=== PATIENT | female | born 1995 | race Two or more races ===

== ENCOUNTER 2016-12-21 16:47 | Inpatient (IN) | payer MEDICAID ==
[2016-12-21] MEDS ORDERED: Acetaminophen/oxyCODONE 325-5 MG Tab PO ONE (18:46)
[2016-12-21] MEDS ORDERED: Sodium Chloride 0.9% 2.5 ML Syringe FLUSH PRN (20:42)
[2016-12-21] MEDS ORDERED: Sodium Chloride 0.9% 10 ML Syringe FLUSH PRN (20:42)
[2016-12-21] MEDS ORDERED: ceFAZolin 1 GM in Premix Bag 1 BAG IV ONE (20:42)
[2016-12-21] MEDS ORDERED: Lactated Ringers 1,000 ML IV SCH ×2 (20:45→23:00)
[2016-12-21] MEDS ORDERED: Citric Acid/Sodium Citrate Solution 30 ML Cup PO SCH (20:45)
--- NOTE | 2016-12-21 20:59 | PCM.PREANE ---
[id number] Reaction - Review of Systems General: No Symptoms Pulmonary: No Symptoms Cardiovascular: No Symptoms Gastrointestinal: No symptoms Neurological: No Symptoms Other: Reports: None - Physical Assessment Pulse: 95 O2 Sat by Pulse Oximetry: 99 Respiratory Rate: 20 Blood Pressure: 142/83 Height: 5 ft 2.99 in Weight: 77.564 kg ASA Class: 2E Mental Status: Alert & Oriented x3 Airway Class: Mallampati = 2 Dentition: Reports: Normal Dentition Thyro-Mental Finger Breadths: 3 Mouth Opening Finger Breadths: 3 ROM/Head Extension: Full Lungs: Clear to auscultation, Normal respiratory effort Cardiovascular: Regular Rate, Regular Rhythm - Lab Values: Laboratory Last Values Urine Color YELLOW 12/21/16 17:45 Urine Appearance CLEAR 12/21/16 17:45 Urine pH 6.0 (5.0-8.0) 12/21/16 17:45 Ur Specific [place] <= 1.005 (1.001-1.035) 12/21/16 17:45 Urine Protein NEGATIVE mg/dL (NEGATIVE) 12/21/16 17:45 Urine Glucose (UA) NEGATIVE mg/dL (NEGATIVE) 12/21/16 17:45 Urine Ketones NEGATIVE mg/dL (NEGATIVE) 12/21/16 17:45 Urine Occult Blood NEGATIVE (NEGATIVE) 12/21/16 17:45 Urine Nitrite NEGATIVE (NEGATIVE) 12/21/16 17:45 Urine Bilirubin NEGATIVE (NEGATIVE) 12/21/16 17:45 Urine Urobilinogen 0.2 EU/dL (<2.0) 12/21/16 17:45 Ur Leukocyte Esterase NEGATIVE (NEGATIVE) 12/21/16 17:45 - Allergies Allergies/Adverse Reactions: Allergies Allergy/AdvReac Type Severity Reaction Status Date / Time No Known Allergies Allergy Verified 07/01/16 18:36 - Anesthesia Plan Free Text/Narrative:: Pt states that she gets extremely anxious after having her spinals placed. "It' s the not having any control feeling". Pt was re-assured. - Acknowledgements Anesthesia Type Planned: General Anesthesia, Spinal Pt an Appropriate Candidate for the Planned Anesthesia: Yes Alternatives and Risks of Anesthesia Discussed w Pt/Guardian: Yes Pt/Guardian Understands and Agrees with Anesthesia Plan: Yes PreAnesthesia Questionnaire HEENT History: Reports: None Cardiovascular History: Reports: None Respiratory History: Reports: None Gastrointestinal History: Reports: GERD Genitourinary History: Reports: None MULTIFOCAL BUTTON GRINDER History: Reports: : 4 Para: 3 LMP (Approximate): Musculoskeletal History: Reports: None Neurological History: Reports: None Psychiatric History: Reports: None Endocrine/Metabolic History: Reports: Obesity/BMI 30+ Hematologic History: Reports: None Immunologic History: Reports: None Oncologic (Cancer) History: Reports: None Dermatologic History: Reports: None - Infectious Disease History Infectious Disease History: Reports: Human papilloma virus (HPV) (2015) - Past Surgical History Head Surgeries/Procedures: Reports: None HEENT Surgical History: Reports: Tonsillectomy Cardiovascular Surgical History: Reports: None GI Surgical History: Reports: None Female Surgical History: Reports: section (X3) Neurological Surgical History: Reports: None Musculoskeletal Surgical History: Reports: None - SUBSTANCE USE Smoking Status *Q: Current Every Day Smoker Tobacco Use Within Last Twelve Months: Cigarettes Recreational Drug Use History: No - HOME MEDS Home Medications: Home Meds Vits #93/Iron Fum/FA [ Formula Tablet] 1 each PO DAILY [History] - CURRENT (IN HOUSE) MEDS Current Meds: Current Medications Citric Acid/Sodium Citrate (Bicitra Solution) 30 ml PO .ONCE MARY Cefazolin Sodium/Dextrose 1 gm (/ Premix) 50 mls @ 100 mls/hr IV ONETIME ONE Stop: 12/21/16 21:11 Lactated Ringer's (Ringers, Lactated) 1,000 mls @ 500 mls/hr IV .BOLUS MARY Sodium Chloride (Saline Flush) 10 ml FLUSH ASDIRECTED PRN PRN Reason: Keep Vein Open Sodium Chloride (Saline Flush) 2.5 ml FLUSH ASDIRECTED PRN PRN Reason: Keep Vein Open Discontinued Medications Oxycodone/Acetaminophen (Percocet 325-5 Mg) 1 tab PO ONETIME ONE Stop: 12/21/16 18:47 Last Admin: 12/21/16 19:01 Dose: 1 tab
[2016-12-21] MEDS ORDERED: Sodium Chloride 0.9% 20 ML ONE (21:20)
[2016-12-21] MEDS ORDERED: Midazolam 1 MG/ML 2 ML SDV ONE (21:20)
[2016-12-21] MEDS ORDERED: fentaNYL 100 MCG/2 ML SDV ONE ×2 (21:20→22:17)
[2016-12-21] MEDS ORDERED: Oxytocin 10 Units/1 ML SDV ONE (21:20)
[2016-12-21] MEDS ORDERED: ceFAZolin 1 GM Vial ONE (21:20)
[2016-12-21] MEDS ORDERED: ePHEDrine 50 MG/ML SDV ONE (21:20)
[2016-12-21] MEDS ORDERED: Morphine PF 10 MG/10 ML SDV ONE (21:21)
[2016-12-21] MEDS ORDERED: Propofol 200 MG/20 ML SDV ONE ×2 (22:08→22:22)
[2016-12-21] MEDS ORDERED: Succinylcholine/Normal Saline 200 MG/10 ML Syringe ONE (22:09)
[2016-12-21] MEDS ORDERED: Rocuronium 10 MG/ML 10 ML Syringe ONE (22:09)
[2016-12-21] MEDS ORDERED: Octyl 2-Cyanoacrylate 1 Tube ONE (22:14)
[2016-12-21] MEDS ORDERED: Lidocaine 1% 50 ML MDV ONE (22:14)
[2016-12-21] MEDS ORDERED: fentaNYL 250 MCG/5 ML SDV ONE (22:19)
--- NOTE | 2016-12-21 22:54 | PCM.OPNOTE ---
- General Post-Op/Procedure Note Date of Surgery/Procedure: 12/21/16 Operative Procedure(s): repeat low transverse Findings: normal pelvis, liveborn male 9 weight 3210 grams Pre Op Diagnosis: 39 weeks, labor, prior Post-Op Diagnosis: Same Anesthesia Technique: Spinal (with MAC) Primary Surgeon: Sarah Robles Anesthesia Provider: Ashley Simons Machine Maintenance: Stanislav Mcintyre Pathology: none Fluid Replacement, Intraop: 1,200 Output, Urine Amount: 300 EBL in mLs: 500 Complications: None Known Condition: Good
[2016-12-21] MEDS ORDERED: HYDROmorphone 2 MG/ML Syringe ONE (22:55)
[2016-12-21] MEDS ORDERED: Lanolin 100% Cream 7 GM Tube TOP PRN (22:56)
[2016-12-21] MEDS ORDERED: Ondansetron 4 MG/2 ML SDV IVPUSH PRN (22:56)
[2016-12-21] MEDS ORDERED: Bisacodyl 10 MG Supp RECTAL PRN (22:56)
[2016-12-21] MEDS ORDERED: Methylergonovine 0.2 MG/1 ML Amp IM PRN (22:56)
[2016-12-21] MEDS ORDERED: diphenhydrAMINE 50 MG/ML SDV IVPUSH PRN (23:09)
[2016-12-21] MEDS ORDERED: Nalbuphine 10 MG/1 ML Vial IVPUSH PRN (23:09)
[2016-12-21] MEDS ORDERED: Naloxone 0.4 MG/ML Syringe IVPUSH PRN (23:09)
[2016-12-21] MEDS: Ketorolac 30 MG/ML SDV IVPUSH SCH (23:17)
[2016-12-22] MEDS: diphenhydrAMINE 50 MG/ML SDV IVPUSH PRN ×2 (00:37→06:28)
--- NOTE | 2016-12-22 02:23 | OR ---
SURGEON: Sarah Robles M.D. DATE OF PROCEDURE: 12/21/2016 PREOPERATIVE DIAGNOSES: A 39-week intrauterine , painful regular contractions, prior delivery x3, desires repeat . POSTOPERATIVE DIAGNOSES: A 39-week intrauterine , painful regular contractions, prior delivery x3, desires repeat . PROCEDURE: Repeat low transverse delivery. ANESTHESIA: Spinal with MAC. FLUIDS: 1200 mL crystalloid. ESTIMATED BLOOD LOSS: 500 mL. URINE OUTPUT: 300 mL. FINDINGS: Live born male, score 9 and 9, weighing 3210 g. Placenta appears normal. Normal-appearing uterus, tubes, and ovaries. COMPLICATIONS: None known. DISPOSITION: Stable to recovery. BRIEF HISTORY: This is a 21-year-old female. She is G4, P3, who presents at 39 weeks' gestation with contractions every 3 to 5 minutes uncomfortable. She rates 8 to 9/10. She received IV fluid hydration. The contractions became more regular and painful, and therefore decision was made to proceed with a repeat as she was 39 weeks of gestation and the contractions were not resolving. Risks had been discussed including bleeding, infection, injury to bowel, bladder, blood vessels, or other organs, risk of thromboembolic event, risk of anesthesia. Understanding all these risks, she does desire to proceed. DESCRIPTION OF PROCEDURE: With the patient in the left tilt position, under spinal analgesia, the abdomen was prepped with chlorhexidine and draped in usual fashion for abdominal surgery. SCDs were in place. She had received a g of Ancef IV and appropriate time-out was held. The area of the cicatrix was grasped with a Maria L clamp. The patient reportedly felt pain on both the right and the left. After waiting for several more minutes, I tested again and the pain was present but less intense. Therefore we waited again and Anesthesia indicated for me to proceed with the surgery. Therefore, a scalp was used to excise the prior cicatrix, which resulted in a transverse curvilinear incision approximately 2 cm cephalad from the pubic symphysis through the skin and fascial incisions. The patient was unaware that I was proceeding. I proceeded through the subcutaneous tissue to the fascia, which was scored transversely in the midline. The fascial incision was extended using curved Patiño scissors. The fascia was elevated from the underlying rectus muscle using sharp and blunt dissection. The rectus muscles were sharply in the midline using Patiño scissors. A finger was used to enter the peritoneal cavity. There were no adhesions to the anterior abdominal wall. Therefore, this incision was extended cephalad and caudad using sharp and blunt dissection. The Tommie O retractor was placed. The visceroperitoneum over the lower uterine segment was incised to develop an adequate bladder flap. A transverse curvilinear incision was made over the lower uterine segment and this incision was extended using blunt dissection resulting in transverse curvilinear incision over the lower uterine segment. Amniotic fluid was clear and with fundal pressure the head and the 's body were delivered via the uterine incision without any difficulty. The was bulb suctioned by nose and mouth. Cord was clamped x2 and cut and the infant was handed to Dr. Cisneros, who was in attendance at delivery. The is a liveborn male, score 9 and 9, weighing 3210 g. Cord blood was collected for cord ABGs as well as routine cord blood sampling. At this point, the patient received additional IV sedation as she was feeling reported discomfort in the peritoneal area. Once her pain control had been adequately addressed, I did proceed with cleaning the uterus and opening of the cervix with a ring forceps and close the uterine incision with a running lock suture of 0 Polysorb followed by an imbricating layer of 0 Polysorb. The posterior cul-de- sac pericolic gutters were cleaned and irrigated. Tubes and ovaries were inspected and appeared normal. The uterine incision was inspected and was hemostatic and the Tommie O retractor was removed. The uterine incision was again inspected and was hemostatic. Therefore, the peritoneum and rectus muscles were loosely approximated in midline using a running mattress suture of 0 Polysorb. The posterior aspect of the fascia was carefully inspected and there were no areas of bleeding. The fascial incision was closed with a running suture of 0 PDS and subcutaneous tissue was irrigated and areas of bleeding that were noted were cauterized. The deep subcutaneous tissue was reapproximated with three [id number] sutures of 0 Polysorb and the skin was closed with a running subcuticular suture of 3-0 Polysorb followed by skin glue. Final sponge, needle, and instrument counts were reported as correct. There were no known complications. The infant is in nursery in good condition. Mother remains in recovery in good condition. KEARA / HOLLAND /[id number]
[2016-12-22] MEDS: Ketorolac 30 MG/ML SDV IVPUSH SCH ×4 (04:37→23:15)
[2016-12-22] MEDS ORDERED: fentaNYL 100 MCG/2 ML SDV IVPUSH PRN (07:10)
--- NOTE | 2016-12-22 07:11 | PCM.POSTAN ---
POST ANESTHESIA ASSESSMENT - MENTAL STATUS Mental Status: alert, oriented - RESPIRATORY Respiratory Status: respiratory rate WNL, airway patent, O2 saturation stable - CARDIOVASCULAR CV Status: pulse rate WNL, blood pressure stable - GASTROINTESTINAL GI Status: no symptoms - PAIN Pain Score: 2 - POST OP HYDRATION Hydration Status: adequate & stable
--- NOTE | 2016-12-22 07:13 | PCM48HPAN ---
Post Anesthesia Note - EVALUATION WITHIN 48HRS OF ANESTHETIC Vital Signs in Normal Range: Yes Patient Participated in Evaluation: Yes Respiratory Function Stable: Yes Airway Patent: Yes Cardiovascular Function Stable: Yes Hydration Status Stable: Yes Pain Control Satisfactory: Yes Nausea and Vomiting Control Satisfactory: Yes Mental Status Recovered: Yes - COMMENTS/OBSERVATIONS Free Text/Narrative:: Pt did well overnight. Denied needing any PO or IV pain medications through the night. This AM states she is "doing good".
--- NOTE | 2016-12-22 08:29 | PCM.PNPP ---
- General Info Date of Service: 12/22/16 Functional Status: Reports: pain controlled, tolerating diet, ambulating, urinating - Review of Systems General: Denies: Fever, Weakness, Fatigue Pulmonary: Denies: shortness of breath, pleuritic chest pain, cough Cardiovascular: Denies: Chest Pain, Palpitations, Dyspnea on Exertion Gastrointestinal: Denies: Abdominal pain Genitourinary: Reports: no symptoms Psychiatric: Reports: no symptoms - General Info Date of Service: 12/22/16 - Patient Data Vital Signs - most recent: Last Vital Signs Temp 36.9 C 12/22/16 08:23 Pulse 87 12/22/16 08:23 Resp 17 12/22/16 08:23 BP 112/57 L 12/22/16 08:23 Pulse Ox 96 12/22/16 08:23 Weight - most recent: 77.564 kg I&O - last 24 hours: Intake & Output 12/21/16 12/22/16 12/22/16 22:59 06:59 14:59 Intake Total 1200 2200 Output Total 600 1020 Balance 600 1180 Lab Results - last 24 hrs: Laboratory Results - last 24 hr 12/21/16 12/21/16 12/21/16 Range/Units 17:45 21:00 21:00 WBC 11.27 H (4.0-11.0) K/uL RBC 3.79 L (4.30-5.90) M/uL Hgb 11.2 L (12.0-16.0) g/dL Hct 34.0 L (36.0-46.0) % MCV 89.7 (80.0-98.0) fL MCH 29.6 (27.0-32.0) pg MCHC 32.9 (31.0-37.0) g/dL RDW Std Deviation 45.1 (28.0-62.0) fl RDW Coeff of Jose De Jesus 14 (11.0-15.0) % Plt Count 295 (150-400) K/uL MPV 9.80 (7.40-12.00) fL Nucleated RBC % 0.0 /100WBC Nucleated RBCs # 0 K/uL Urine Color YELLOW Urine Appearance CLEAR Urine pH 6.0 (5.0-8.0) Ur Specific [place] <= 1.005 (1.001-1.035) Urine Protein NEGATIVE (NEGATIVE) mg/dL Urine Glucose (UA) NEGATIVE (NEGATIVE) mg/dL Urine Ketones NEGATIVE (NEGATIVE) mg/dL Urine Occult Blood NEGATIVE (NEGATIVE) Urine Nitrite NEGATIVE (NEGATIVE) Urine Bilirubin NEGATIVE (NEGATIVE) Urine Urobilinogen 0.2 (<2.0) EU/dL Ur Leukocyte Esterase NEGATIVE (NEGATIVE) Blood Type O POSITIVE Antibody Screen NEGATIVE 12/22/16 Range/Units 04:35 WBC (4.0-11.0) K/uL RBC (4.30-5.90) M/uL Hgb 9.8 L (12.0-16.0) g/dL Hct 29.2 L (36.0-46.0) % MCV (80.0-98.0) fL MCH (27.0-32.0) pg MCHC (31.0-37.0) g/dL RDW Std Deviation (28.0-62.0) fl RDW Coeff of Jose De Jesus (11.0-15.0) % Plt Count (150-400) K/uL MPV (7.40-12.00) fL Nucleated RBC % /100WBC Nucleated RBCs # K/uL Urine Color Urine Appearance Urine pH (5.0-8.0) Ur Specific [place] (1.001-1.035) Urine Protein (NEGATIVE) mg/dL Urine Glucose (UA) (NEGATIVE) mg/dL Urine Ketones (NEGATIVE) mg/dL Urine Occult Blood (NEGATIVE) Urine Nitrite (NEGATIVE) Urine Bilirubin (NEGATIVE) Urine Urobilinogen (<2.0) EU/dL Ur Leukocyte Esterase (NEGATIVE) Blood Type Antibody Screen Med Orders - Current: Current Medications Bisacodyl (Dulcolax) 10 mg RECTAL .ONCE PRN PRN Reason: Constipation Diphenhydramine HCl (Benadryl) 25 mg IVPUSH Q6H PRN PRN Reason: Itching or Nausea Last Admin: 12/22/16 06:28 Dose: 25 mg Diphenhydramine HCl (Benadryl) 25 mg IVPUSH Q4H PRN PRN Reason: Itching Stop: 12/22/16 23:09 Docusate Sodium (Colace) 100 mg PO BID MARY Emollient Ointment (Lansinoh Hpa) 0 gm TOP ASDIRECTED PRN PRN Reason: Sore Nipples Fentanyl (Sublimaze) 50 mcg IVPUSH Q45M PRN PRN Reason: Pain (severe 7-10) Stop: 12/22/16 23:59 Lactated Ringer's (Ringers, Lactated) 1,000 mls @ 125 mls/hr IV ASDIRECTED [facility] Last Admin: 12/22/16 06:28 Dose: 125 mls/hr Ibuprofen (Motrin) 800 mg PO Q8H PRN PRN Reason: mild pain or fever Ketorolac Tromethamine (Toradol) 30 mg IVPUSH Q6H [facility] Stop: 12/22/16 23:01 Last Admin: 12/22/16 04:37 Dose: 30 mg Methylergonovine Maleate (Methergine) 0.2 mg IM .ONCE PRN PRN Reason: Excessive Vaginal Bleeding Nalbuphine HCl (Nubain) 5 mg IVPUSH Q3H PRN PRN Reason: Pruritis Stop: 12/22/16 23:09 Naloxone HCl (Narcan) 0.1 mg IVPUSH ONETIME PRN PRN Reason: Resp. Depression Stop: 12/22/16 23:09 Ondansetron HCl (Zofran) 4 mg IVPUSH Q4H PRN PRN Reason: Nausea/Vomiting Oxycodone/Acetaminophen (Percocet 325-5 Mg) 1 tab PO Q4H PRN PRN Reason: Pain (moderate 4-6) Discontinued Medications Cefazolin Sodium (Ancef) Confirm Administered Dose 1 gm .ROUTE .STK-MED ONE Stop: 12/21/16 21:21 Citric Acid/Sodium Citrate (Bicitra Solution) 30 ml PO .ONCE [facility] Last Admin: 12/21/16 21:48 Dose: 30 ml Ephedrine Sulfate (Ephedrine Sulfate) Confirm Administered Dose 50 mg .ROUTE .STK-MED ONE Stop: 12/21/16 21:21 Fentanyl (Sublimaze) Confirm Administered Dose 100 mcg .ROUTE .STK-MED ONE Stop: 12/21/16 21:21 Fentanyl (Sublimaze) Confirm Administered Dose 100 mcg .ROUTE .STK-MED ONE Stop: 12/21/16 22:18 Fentanyl (Sublimaze) Confirm Administered Dose 250 mcg .ROUTE .STK-MED ONE Stop: 12/21/16 22:20 Hydromorphone HCl (Dilaudid) Confirm Administered Dose 2 mg .ROUTE .STK-MED ONE Stop: 12/21/16 22:56 Cefazolin Sodium/Dextrose 1 gm (/ Premix) 50 mls @ 100 mls/hr IV ONETIME ONE Stop: 12/21/16 21:11 Lactated Ringer's (Ringers, Lactated) 1,000 mls @ 500 mls/hr IV .BOLUS MARY Last Admin: 12/21/16 21:00 Dose: 500 mls/hr Sodium Chloride (Normal Saline) Confirm Administered Dose 20 mls @ as directed .ROUTE .STK-MED ONE Stop: 12/21/16 21:21 Lidocaine HCl (Xylocaine 1%) Confirm Administered Dose 50 ml .ROUTE .STK-MED ONE Stop: 12/21/16 22:15 Midazolam HCl (Versed 1 Mg/Ml) Confirm Administered Dose 2 mg .ROUTE .STK-MED ONE Stop: 12/21/16 21:21 Morphine Sulfate (Duramorph Pf) Confirm Administered Dose 10 mg .ROUTE .STK-MED ONE Stop: 12/21/16 21:22 Octyl Cyanoacrylate (Dermabond Advance) Confirm Administered Dose 1 applic .ROUTE .STK-MED ONE Stop: 12/21/16 22:15 Oxycodone/Acetaminophen (Percocet 325-5 Mg) 1 tab PO ONETIME ONE Stop: 12/21/16 18:47 Last Admin: 12/21/16 19:01 Dose: 1 tab Oxytocin (Pitocin) Confirm Administered Dose 20 unit .ROUTE .STK-MED ONE Stop: 12/21/16 21:21 Propofol (Diprivan 20 Ml) Confirm Administered Dose 200 mg .ROUTE .STK-MED ONE Stop: 12/21/16 22:09 Propofol (Diprivan 20 Ml) Confirm Administered Dose 200 mg .ROUTE .STK-MED ONE Stop: 12/21/16 22:23 Rocuronium [place] (Zemuron) Confirm Administered Dose 100 mg .ROUTE .STK-MED ONE Stop: 12/21/16 22:10 Sodium Chloride (Saline Flush) 10 ml FLUSH ASDIRECTED PRN PRN Reason: Keep Vein Open Sodium Chloride (Saline Flush) 2.5 ml FLUSH ASDIRECTED PRN PRN Reason: Keep Vein Open Succinylcholine Chloride (Succinylcholine In Ns Pf) Confirm Administered Dose 200 mg .ROUTE .STK-MED ONE Stop: 12/21/16 22:10 - Interaction Disposition, : [place] to Nursery Infant Feeding: Bottle Fed Infant Support Person: Significant Other - Recovery Exam Fundal Tone: Firm Fundal Level: At Umbilicus Fundal Placement: Midline Lochia Amount: Moderate Lochia Color: Rubra/Red Episiotomy/Laceration: Approximated Bladder Status: Nonpalpable Urinary Elimination: Indwelling Catheter - Exam General: alert, oriented Lungs: Clear to auscultation, Normal respiratory effort Cardiovascular: Regular Rate, Regular Rhythm Abdomen: bowel sounds present, soft, no tenderness, no distension Extremities: edema (trace) Psy/Mental Status: alert, normal affect, normal mood - Problem List & Annotations (1) delivery delivered SNOMED Code(s): 622704833 Code(s): O82 - ENCOUNTER FOR DELIVERY WITHOUT INDICATION Status: Acute Current Visit: Yes - Problem List Review Problem List Initiated/Reviewed/Updated: Yes - My Orders Last 24 Hours: My Active Orders 12/22/16 Breakfast Regular Diet [DIET] - Assessment Assessment:: POD #1 RLTCS. Minimal pain and lochia. Denies SOB or chest pain. - Plan Plan:: Continue routine post-op cares. Remove robert today, up to shower.
[2016-12-22] MEDS: Docusate Sodium 100 MG Cap PO SCH ×2 (09:00→21:41)
[2016-12-23] MEDS: Acetaminophen/oxyCODONE 325-5 MG Tab PO PRN ×3 (03:33→14:27)
[2016-12-23] MEDS: Docusate Sodium 100 MG Cap PO SCH (08:50)
[2016-12-23] MEDS: Ibuprofen 800 MG Tab PO PRN ×2 (10:26→16:51)
--- NOTE | 2016-12-23 12:42 | PCM.PNPP ---
- General Info Date of Service: 12/23/16 Functional Status: Reports: pain controlled, tolerating diet, ambulating, urinating - Review of Systems General: Denies: Fever, Weakness, Fatigue, Chills Pulmonary: Denies: shortness of breath, pleuritic chest pain, cough Cardiovascular: Denies: Chest Pain, Palpitations, Dyspnea on Exertion Gastrointestinal: Denies: Abdominal pain Genitourinary: Denies: dysuria, flank pain Neurological: Denies: Headache Psychiatric: Denies: depression, mood lability - General Info Date of Service: 12/23/16 - Patient Data Vital Signs - most recent: Last Vital Signs Temp 36.8 C 12/23/16 08:00 Pulse 93 12/23/16 08:00 Resp 16 12/23/16 08:00 BP 117/62 12/23/16 08:00 Pulse Ox 97 12/23/16 08:00 Weight - most recent: 171 lb I&O - last 24 hours: Intake & Output 12/22/16 12/23/16 12/23/16 22:59 06:59 14:59 Output Total 500 Balance -500 Med Orders - Current: Current Medications Bisacodyl (Dulcolax) 10 mg RECTAL .ONCE PRN PRN Reason: Constipation Diphenhydramine HCl (Benadryl) 25 mg IVPUSH Q6H PRN PRN Reason: Itching or Nausea Last Admin: 12/22/16 06:28 Dose: 25 mg Docusate Sodium (Colace) 100 mg PO BID [facility] Last Admin: 12/23/16 08:50 Dose: 100 mg Emollient Ointment (Lansinoh Hpa) 0 gm TOP ASDIRECTED PRN PRN Reason: Sore Nipples Lactated Ringer's (Ringers, Lactated) 1,000 mls @ 125 mls/hr IV ASDIRECTED [facility] Last Admin: 12/22/16 06:28 Dose: 125 mls/hr Ibuprofen (Motrin) 800 mg PO Q8H PRN PRN Reason: mild pain or fever Last Admin: 12/23/16 10:26 Dose: 800 mg Methylergonovine Maleate (Methergine) 0.2 mg IM .ONCE PRN PRN Reason: Excessive Vaginal Bleeding Ondansetron HCl (Zofran) 4 mg IVPUSH Q4H PRN PRN Reason: Nausea/Vomiting Oxycodone/Acetaminophen (Percocet 325-5 Mg) 1 tab PO Q4H PRN PRN Reason: Pain (moderate 4-6) Last Admin: 12/23/16 08:50 Dose: 1 tab Discontinued Medications Cefazolin Sodium (Ancef) Confirm Administered Dose 1 gm .ROUTE .STK-MED ONE Stop: 12/21/16 21:21 Citric Acid/Sodium Citrate (Bicitra Solution) 30 ml PO .ONCE MARY Last Admin: 12/21/16 21:48 Dose: 30 ml Diphenhydramine HCl (Benadryl) 25 mg IVPUSH Q4H PRN PRN Reason: Itching Stop: 12/22/16 23:09 Ephedrine Sulfate (Ephedrine Sulfate) Confirm Administered Dose 50 mg .ROUTE .STK-MED ONE Stop: 12/21/16 21:21 Fentanyl (Sublimaze) Confirm Administered Dose 100 mcg .ROUTE .STK-MED ONE Stop: 12/21/16 21:21 Fentanyl (Sublimaze) Confirm Administered Dose 100 mcg .ROUTE .STK-MED ONE Stop: 12/21/16 22:18 Fentanyl (Sublimaze) Confirm Administered Dose 250 mcg .ROUTE .STK-MED ONE Stop: 12/21/16 22:20 Fentanyl (Sublimaze) 50 mcg IVPUSH Q45M PRN PRN Reason: Pain (severe 7-10) Stop: 12/22/16 23:59 Hydromorphone HCl (Dilaudid) Confirm Administered Dose 2 mg .ROUTE .STK-MED ONE Stop: 12/21/16 22:56 Cefazolin Sodium/Dextrose 1 gm (/ Premix) 50 mls @ 100 mls/hr IV ONETIME ONE Stop: 12/21/16 21:11 Lactated Ringer's (Ringers, Lactated) 1,000 mls @ 500 mls/hr IV .BOLUS MARY Last Admin: 12/21/16 21:00 Dose: 500 mls/hr Sodium Chloride (Normal Saline) Confirm Administered Dose 20 mls @ as directed .ROUTE .STK-MED ONE Stop: 12/21/16 21:21 Ketorolac Tromethamine (Toradol) 30 mg IVPUSH Q6H [facility] Stop: 12/22/16 23:01 Last Admin: 12/22/16 23:15 Dose: 30 mg Lidocaine HCl (Xylocaine 1%) Confirm Administered Dose 50 ml .ROUTE .STK-MED ONE Stop: 12/21/16 22:15 Midazolam HCl (Versed 1 Mg/Ml) Confirm Administered Dose 2 mg .ROUTE .STK-MED ONE Stop: 12/21/16 21:21 Morphine Sulfate (Duramorph Pf) Confirm Administered Dose 10 mg .ROUTE .STK-MED ONE Stop: 12/21/16 21:22 Nalbuphine HCl (Nubain) 5 mg IVPUSH Q3H PRN PRN Reason: Pruritis Stop: 12/22/16 23:09 Naloxone HCl (Narcan) 0.1 mg IVPUSH ONETIME PRN PRN Reason: Resp. Depression Stop: 12/22/16 23:09 Octyl Cyanoacrylate (Dermabond Advance) Confirm Administered Dose 1 applic .ROUTE .STK-MED ONE Stop: 12/21/16 22:15 Oxycodone/Acetaminophen (Percocet 325-5 Mg) 1 tab PO ONETIME ONE Stop: 12/21/16 18:47 Last Admin: 12/21/16 19:01 Dose: 1 tab Oxytocin (Pitocin) Confirm Administered Dose 20 unit .ROUTE .STK-MED ONE Stop: 12/21/16 21:21 Propofol (Diprivan 20 Ml) Confirm Administered Dose 200 mg .ROUTE .STK-MED ONE Stop: 12/21/16 22:09 Propofol (Diprivan 20 Ml) Confirm Administered Dose 200 mg .ROUTE .STK-MED ONE Stop: 12/21/16 22:23 Rocuronium [place] (Zemuron) Confirm Administered Dose 100 mg .ROUTE .STK-MED ONE Stop: 12/21/16 22:10 Sodium Chloride (Saline Flush) 10 ml FLUSH ASDIRECTED PRN PRN Reason: Keep Vein Open Sodium Chloride (Saline Flush) 2.5 ml FLUSH ASDIRECTED PRN PRN Reason: Keep Vein Open Succinylcholine Chloride (Succinylcholine In Ns Pf) Confirm Administered Dose 200 mg .ROUTE .STK-MED ONE Stop: 12/21/16 22:10 - Interaction Infant Disposition, : in Room with Family Infant Feeding: Bottle Fed Infant Support Person: Significant Other - Recovery Exam Fundal Tone: Firm Fundal Level: 2 Fingerbreadths Below Umbilicus Fundal Placement: Midline Lochia Amount: Scant Lochia Color: Rubra/Red Perineum Description: Intact, Minimal Bruising/Swelling Episiotomy/Laceration: None Bladder Status: Voiding Urinary Elimination: Voided - Exam General: alert, oriented HEENT: Pupils equal Lungs: Clear to auscultation, Normal respiratory effort Cardiovascular: Regular Rate, Regular Rhythm Abdomen: bowel sounds present, soft, no tenderness, no distension Extremities: no edema Skin: warm Wound/Incisions: healing well Psy/Mental Status: alert, normal affect, normal mood - Problem List & Annotations (1) delivery delivered SNOMED Code(s): 028713467 Code(s): O82 - ENCOUNTER FOR DELIVERY WITHOUT INDICATION Status: Acute Current Visit: Yes - Problem List Review Problem List Initiated/Reviewed/Updated: Yes - Assessment Assessment:: POD #2 RLTCS. Minimal pain and lochia. Stable and afebrile. - Plan Plan:: Continue routine postop/ care.Aim for discharge tomorrow.
[2016-12-23 17:02] VITALS: BP 116/67
== END 2016-12-23 18:00 | disposition home or self-care (01) | DRG 766 ==
LOC: MW.OBCHECK 16:47 → MW.OB 16:51 → MW.OBCHECK 20:42 → MW.OB 20:42 → OBSVTOIN 22:16 → MW.OB 22:56
PROVIDERS: ADMIT Obstetrics & Gynecology; ATTEND Obstetrics & Gynecology
PROC: 10D00Z1 Extraction of Products of Conception, Low, Open Approach (ICD-10-PCS; principal; 2016-12-21)
DX: O34.211 Maternal care for low transverse scar from previous cesarean delivery (principal); N85.8 Other specified noninflammatory disorders of uterus; Z3A.39 39 weeks gestation of pregnancy; Z37.0 Single live birth; O99.334 Smoking (tobacco) complicating childbirth; F17.210 Nicotine dependence, cigarettes, uncomplicated
CPT/HCPCS: 01961; 36415; 59025; 81003; 85014; 85018; 85027; 86850; 86900; 86901; A9270-GY; J0690; J1170; J1200; J1885; J2250; J2270; J2590; J2704; J3010; J7120

== ENCOUNTER 2017-04-06 14:44 | Emergency (ER) | payer MEDICAID ==
[2017-04-06] MEDS ORDERED: Sodium Chloride 0.9% 1,000 ML IV ONE (14:56)
[2017-04-06] MEDS ORDERED: Morphine 2 MG/ML Syringe IVPUSH ONE (14:56)
--- NOTE | 2017-04-06 15:30 | EDM.PDOC ---
ED HPI GENERAL MEDICAL PROBLEM - General Chief Complaint: Abdominal Pain Stated Complaint: PAIN ON RIGHT SIDE INCISION AREA Time Seen by Provider: 04/06/17 14:54 - History of Present Illness INITIAL COMMENTS - FREE TEXT/NARRATIVE: HISTORY AND PHYSICAL: History of present illness: This is a 21-year-old female presenting to the emergency department with a chief complaint of lower abdominal pain onset 1 hour ago. Patient tells me that she had a back 3 months ago and she is currently experiencing abdominal pain along the incision line. She tells me that is making it difficult to walk. She denies any fevers or chills, nausea, or vomiting. Tells me that she had one menstrual cycle since . She is unaware if could be again. Denies any other complaints. Review of systems: As per history of present illness and below otherwise all systems reviewed and negative. Past medical history: As per history of present illness and as reviewed below otherwise noncontributory. Surgical history: As per history of present illness and as reviewed below otherwise noncontributory. Social history: No reported history of drug or alcohol abuse. Family history: As per history of present illness and as reviewed below otherwise noncontributory. Physical exam: HEENT: Atraumatic, normocephalic, pupils reactive, negative for conjunctival pallor or scleral icterus, mucous membranes moist, throat clear, neck supple, nontender, trachea midline. Lungs: Clear to auscultation, breath sounds equal bilaterally, chest nontender. Heart: S1S2, regular, negative for clicks, rubs, or JVD. Abdomen: Soft, nondistended, nontender. Negative for masses or hepatosplenomegaly. Negative for costovertebral tenderness. Pelvis: Stable nontender. Genitourinary: Deferred. Rectal: Deferred. Extremities: Atraumatic, negative for cords or calf pain. Neurovascular unremarkable. Neuro: Awake, alert, oriented. Cranial nerves II through XII unremarkable. Cerebellum unremarkable. Motor and sensory unremarkable throughout. Exam nonfocal. Diagnostics: Transvaginal ultrasound Therapeutics: IV 2 mg morphine Impression: Positive hCG Transvaginal ultrasound indicates endometrial thickening without indication of a intrauterine or ectopic . Plan: Discharge home. Follow-up primary care provider. Patient advised to return to seek further medical attention if she experiences worsening abdominal pain, nausea vomiting or fever. Lower Abdominal Pain Score (Numeric/FACES): 7 - Related Data Allergies Allergy/AdvReac Type Severity Reaction Status Date / Time No Known Allergies Allergy Verified 04/06/17 14:49 Home Meds: Home Meds . 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: Musculoskeletal History: Reports: None Neurological History: Reports: None Psychiatric History: Reports: None Endocrine/Metabolic History: Reports: Obesity/BMI 30+ Hematologic History: Reports: None Immunologic History: Reports: None Oncologic (Cancer) History: Reports: None Dermatologic History: Reports: None - Infectious Disease History Infectious Disease History: Reports: None - Past Surgical History Head Surgeries/Procedures: Reports: None HEENT Surgical History: Reports: Tonsillectomy Cardiovascular Surgical History: Reports: None GI Surgical History: Reports: None Female Surgical History: Reports: Section Neurological Surgical History: Reports: None Musculoskeletal Surgical History: Reports: None Social & Family History - Family History Family Medical History: Noncontributory - Tobacco Use Smoking Status *Q: Current Every Day Smoker Years of Tobacco use: 7 Packs/Tins Daily: 0.5 Used Tobacco, but Quit: No Second Hand Smoke Exposure: Yes - Caffeine Use Caffeine Use: Reports: Coffee - Recreational Drug Use Recreational Drug Use: No ED ROS GENERAL - Review of Systems Review Of Systems: ROS reveals no pertinent complaints other than HPI. (See dictation) ED EXAM, GI/ABD - Physical Exam Exam: See Below Course - Vital Signs Last Recorded V/S: Last Vital Signs Temp 36.5 C 04/06/17 14:49 Pulse 91 04/06/17 14:49 Resp 17 04/06/17 14:49 BP 127/77 04/06/17 14:49 Pulse Ox 99 04/06/17 14:49 - Orders/Labs/Meds Labs: Laboratory Tests 04/06/17 04/06/17 Range/Units 15:12 15:12 WBC 9.02 (4.0-11.0) K/uL RBC 4.46 (4.30-5.90) M/uL Hgb 12.3 (12.0-16.0) g/dL Hct 37.5 (36.0-46.0) % MCV 84.1 (80.0-98.0) fL MCH 27.6 (27.0-32.0) pg MCHC 32.8 (31.0-37.0) g/dL RDW Std Deviation 46.1 (28.0-62.0) fl RDW Coeff of Jose De Jesus 15 (11.0-15.0) % Plt Count 389 (150-400) K/uL MPV 9.50 (7.40-12.00) fL Neut % (Auto) 57.8 (48.0-80.0) % Lymph % (Auto) 28.3 (16.0-40.0) % [place] % (Auto) 8.1 (0.0-15.0) % Eos % (Auto) 5.4 (0.0-7.0) % Baso % (Auto) 0.4 (0.0-1.5) % Neut # (Auto) 5.2 (1.4-5.7) K/uL Lymph # (Auto) 2.6 H (0.6-2.4) K/uL [place] # (Auto) 0.7 (0.0-0.8) K/uL Eos # (Auto) 0.5 (0.0-0.7) K/uL Baso # (Auto) 0.0 (0.0-0.1) K/uL Nucleated RBC % 0.0 /100WBC Nucleated RBCs # 0 K/uL HCG, Qual POSITIVE H (NEG) Meds: Medications Discontinued Medications Generic Name Dose Route Start Last Admin Trade Name Luis Albertoq PRN Reason Stop Dose Admin Sodium Chloride 1,000 mls @ 999 mls/hr 04/06/17 14:56 04/06/17 15:14 Normal Saline IV 04/06/17 15:56 999 mls/hr STAT ONE Administration Morphine Sulfate 2 mg 04/06/17 14:56 04/06/17 15:19 Morphine IVPUSH 04/06/17 14:57 2 mg ONETIME ONE Administration Departure - Departure Time of Disposition: 16:20 Disposition: Home, Self-Care 01 Condition: Good Clinical Impression: - Discharge Information Forms: ED Department Discharge Additional Instructions: The following information is given to patients seen in the emergency department who are being discharged to home. This information is to outline your options for follow-up care. We provide all patients seen in our emergency department with a follow-up referral. The need for follow-up, as well as the timing and circumstances, are variable depending upon the specifics of your emergency department visit. If you don't have a primary care physician on staff, we will provide you with a referral. We always advise you to contact your personal physician following an emergency department visit to inform them of the circumstance of the visit and for follow-up with them and/or the need for any referrals to a consulting specialist. The emergency department will also refer you to a specialist when appropriate. This referral assures that you have the opportunity for follow-up care with a specialist. All of these measure are taken in an effort to provide you with optimal care, which includes your follow-up. Under all circumstances we always encourage you to contact your private physician who remains a resource for coordinating your care. When calling for follow-up care, please make the office aware that this follow-up is from your recent emergency room visit. If for any reason you are refused follow-up, please contact the [facility] Emergency Department at and asked to speak to the emergency department charge nurse. It was found at today's ER visit that you are . At this point in time, it is unclear whether this is a intrauterine or ectopic . It is important that you follow up with a primary care provider for further management. Please return to seek further medical attention if you experience any fevers, chills, nausea or vomiting, or worsening abdominal pain.
--- NOTE | 2017-04-06 16:15 | US ---
EXAMINATION: Transvaginal pelvic ultrasound HISTORY: Pain COMPARISON: None TECHNIQUE: Grayscale and color Doppler images obtained of the pelvis transvaginally. FINDINGS: The uterus is normal in size, contour, and echogenicity. Endometrial stripe is thickened a t 2.4 cm with a small fluid within the central canal. There is a small the both thin cyst. There is a small amount of free pelvic fluid. Both the left and right ovaries are normal in size, contour, and echogenicity demonstrating normal c olor and spectral Doppler flow. Follicles are noted bilaterally. There is a 2.4 cm complex right ova nathanael cyst. IMPRESSION: 1. Endometrial stripe is notably thickened. There is also a 2.4 cm complex cyst adjacent to the righ t ovary. An ectopic is not excluded. 2. Small amount of free pelvic fluid.
[2017-04-06 17:18] VITALS: BP 119/77
== END 2017-04-06 17:21 | disposition home or self-care (01) ==
LOC: MW.ED 14:44
DX: O99.89 Other specified diseases and conditions complicating pregnancy, childbirth and the puerperium (principal); R10.30 Lower abdominal pain, unspecified; O99.611 Diseases of the digestive system complicating pregnancy, first trimester; K21.9 Gastro-esophageal reflux disease without esophagitis; E66.9 Obesity, unspecified; Z68.27 Body mass index [BMI] 27.0-27.9, adult; Z98.890 Other specified postprocedural states
CPT/HCPCS: 76830; 84702; 84703; 85025; 96361; 96374; 99284; J2270; J7040

== ENCOUNTER 2017-04-16 20:10 | Emergency (ER) | payer MEDICAID ==
[2017-04-16] MEDS ORDERED: Sodium Chloride 0.9% 1,000 ML IV ONE (20:30)
--- NOTE | 2017-04-16 20:39 | EDM.PDOC ---
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 Complaint: PAIN ON RIGHT SIDE Time Seen by Provider: 04/16/17 20:31 Source of Information: Reports: Patient - History of Present Illness INITIAL COMMENTS - FREE TEXT/NARRATIVE: HISTORY AND PHYSICAL: History of present illness: []21-year-old with history of 4 live births by presents with crampy pain she rates 7 out of 10 nonradiating however she does not elicit any pain behaviors and does not appear to be in any distress No low back pain does not feel any sensation or urge to push no vaginal discharge fluid leak which or bleeding no spotting Denies chronic illness disease her medications Primary OB provider via Dr. Longoria she's had several visits for this in fact had an hCG Quant performed today ordered by Swati Review of systems: As per history of present illness and below otherwise all systems reviewed and negative. Past medical history: As per history of present illness and as reviewed below otherwise noncontributory. Surgical history: As per history of present illness and as reviewed below otherwise noncontributory. Social history: No reported history of drug or alcohol abuse. Family history: As per history of present illness and as reviewed below otherwise noncontributory. Physical exam: HEENT: Atraumatic, normocephalic, pupils reactive, negative for conjunctival pallor or scleral icterus, mucous membranes moist, throat clear, neck supple, nontender, trachea midline. Lungs: Clear to auscultation, breath sounds equal bilaterally, chest nontender. Heart: S1S2, regular, negative for clicks, rubs, or JVD. Abdomen: Soft, nondistended, nontender. Negative for masses or hepatosplenomegaly. Negative for costovertebral tenderness. No pain elicited on abdominal or pelvic exam Pelvis: Stable nontender. Genitourinary: Deferred. Rectal: Deferred. Extremities: Atraumatic, negative for cords or calf pain. Neurovascular unremarkable. Neuro: Awake, alert, oriented. Cranial nerves II through XII unremarkable. Cerebellum unremarkable. Motor and sensory unremarkable throughout. Exam nonfocal. Diagnostics: []UA HCG performed today Ultrasound on file Therapeutics: []1 L normal saline bolus I will provide ER referral back to Dr. Longoria for close follow-up in hCGs ultrasounding as needed to reviewed tonight's ultrasound, patient will ER referral for tomorrow for evaluation and close follow-up until it can be discerned whether were dealing with an ectopic or intrauterine Impression: [ 4 live births by LMP 02/09/2017. Uncertain dates November 30, 2017 for EDC by uncertain dates Indecisive findings on ultrasound as there is appearance of possible gestational sac in the uterus, and also appearance of possible ectopic Definitive disposition and diagnosis as appropriate pending reevaluation and review of above. 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: Musculoskeletal History: Reports: None Neurological History: Reports: None Psychiatric History: Reports: None Endocrine/Metabolic History: Reports: Obesity/BMI 30+ Hematologic History: Reports: None Immunologic History: Reports: None Oncologic (Cancer) History: Reports: None Dermatologic History: Reports: None - Infectious Disease History Infectious Disease History: Reports: None - Past Surgical History Head Surgeries/Procedures: Reports: None HEENT Surgical History: Reports: Tonsillectomy Cardiovascular Surgical History: Reports: None GI Surgical History: Reports: None Female Surgical History: Reports: Section Neurological Surgical History: Reports: None Musculoskeletal Surgical History: Reports: None Social & Family History - Family History Family Medical History: Noncontributory - Tobacco Use Smoking Status *Q: Current Every Day Smoker Years of Tobacco use: 8 Packs/Tins Daily: 0.5 Used Tobacco, but Quit: No Second Hand Smoke Exposure: Yes - Caffeine Use Caffeine Use: Reports: Coffee - Recreational Drug Use Recreational Drug Use: No ED ROS GENERAL - Review of Systems Review Of Systems: ROS reveals no pertinent complaints other than HPI. ED EXAM, GENERAL - Physical Exam Exam: See Below Course - Vital Signs Last Recorded V/S: Last Vital Signs Temp 36.4 C 04/16/17 23:17 Pulse 85 04/16/17 23:17 Resp 18 04/16/17 23:17 BP 133/62 04/16/17 23:17 Pulse Ox 96 04/16/17 23:17 - Orders/Labs/Meds Orders: Active Orders 24 hr Category Date Time Status OB 1st Tri Sgl 1st Gest [US] Stat Exams 04/16/17 22:28 Taken Labs: Laboratory Tests 04/16/17 Range/Units 20:30 Urine Color YELLOW Urine Appearance CLEAR Urine pH 6.5 (5.0-8.0) Ur Specific [place] 1.010 (1.001-1.035) Urine Protein NEGATIVE (NEGATIVE) mg/dL Urine Glucose (UA) NEGATIVE (NEGATIVE) mg/dL Urine Ketones NEGATIVE (NEGATIVE) mg/dL Urine Occult Blood NEGATIVE (NEGATIVE) Urine Nitrite NEGATIVE (NEGATIVE) Urine Bilirubin NEGATIVE (NEGATIVE) Urine Urobilinogen 0.2 (<2.0) EU/dL Ur Leukocyte Esterase NEGATIVE (NEGATIVE) Urine RBC 0-1 (0-2/HPF) Urine WBC 0-1 (0-5/HPF) Ur Epithelial Cells FEW (NONE-FEW) Urine Bacteria RARE (NEGATIVE) Meds: Medications Discontinued Medications Generic Name Dose Route Start Last Admin Trade Name Luis Albertoq PRN Reason Stop Dose Admin Sodium Chloride 1,000 mls @ 999 mls/hr 04/16/17 20:30 04/16/17 21:02 Normal Saline IV 04/16/17 21:30 999 mls/hr STAT ONE Administration Departure - Departure Time of Disposition: 00:21 Disposition: Home, Self-Care 01 Condition: Good Clinical Impression: Adnexal cyst - Discharge Information Referrals: PCP,None [Primary Care Provider] - Forms: ED Department Discharge Additional Instructions: ER referral back to OB provider for tomorrow for close follow-up of tonight's ultrasound and redirected treatment as necessary as there is both possibility for early intrauterine and also possibility of ectopic . Return to ER if symptoms persist or worsen or if he develops vaginal bleeding The following information is given to patients seen in the emergency department who are being discharged to home. This information is to outline your options for follow-up care. We provide all patients seen in our emergency department with a follow-up referral. The need for follow-up, as well as the timing and circumstances, are variable depending upon the specifics of your emergency department visit. If you don't have a primary care physician on staff, we will provide you with a referral. We always advise you to contact your personal physician following an emergency department visit to inform them of the circumstance of the visit and for follow-up with them and/or the need for any referrals to a consulting specialist. The emergency department will also refer you to a specialist when appropriate. This referral assures that you have the opportunity for follow-up care with a specialist. All of these measure are taken in an effort to provide you with optimal care, which includes your follow-up. Under all circumstances we always encourage you to contact your private physician who remains a resource for coordinating your care. When calling for follow-up care, please make the office aware that this follow-up is from your recent emergency room visit. If for any reason you are refused follow-up, please contact the [facility] emergency department at and asked to speak to the emergency department charge nurse. - My Orders Last 24 Hours: My Active Orders 04/16/17 22:28 OB 1st Tri Sgl 1st Gest [US] Stat - Assessment/Plan Last 24 Hours: My Active Orders 04/16/17 22:28 OB 1st Tri Sgl 1st Gest [US] Stat
[2017-04-17 03:26] VITALS: BP 125/72
--- NOTE | 2017-04-17 11:01 | US ---
EXAM DATE: 04/16/17 PATIENT'S AGE: 21 Patient: CARLOS JOHNSON Facility: [place], [place] Site . Site : 1995 Study: US OB Pelvis [id number]/2017 11:28:18 PM Ordering Physician: Mckenna Fleming Final Report: INDICATION: Right-sided pelvic pain TECHNIQUE: Ultrasound OB pelvis transvaginal. Real time damon scale imaging of the pelvis was performed. COMPARISON: None FINDINGS: LMP: 02/09/2017 Sonographic imaging demonstrates a possible single intrauterine gestational sac with yolk sac. No pole identified. There is a normal appearing yolk sac. There are no gross abnormalities noted within the embryo at this early state of development. The placenta has not yet developed. The gestational sac has a normal appearance and there is no evidence of a perigestational hemorrhage. Small amount of complex fluid within the endometrial canal. The cervix is closed. The myometrium appears normal. Present within the right ovary is a 2.5 centimeter x 1.9 centimeters simple cystic lesion possible internal echoes. Small amount of fluid in the cul-de-sac. IMPRESSION: Possible intrauterine gestational sac with yolk sac. No pole identified. Followup recommended as well as correlation with serial beta HCG levels. Small amount of complex fluid in the endometrial canal. Smaller fluid in the cul-de-sac. 2.5 centimeters cystic right ovary with possible internal echoes. This is not the typical appearance for ectopic although this entity cannot be excluded. Followup ultrasound 0 by HCGs recommended. Findings discussed on 04/17/17 at 12:[address] Andres. Dictated by Jose Foster MD @ 04/17/2017 12:13:16 AM Dictated by: Jose Foster MD @ 04/17/2017 00:13:19 (Electronic Signature) Report Signed by Proxy. ARABELLA
== END 2017-04-17 00:35 | disposition home or self-care (01) ==
LOC: MW.ED 20:10
DX: N83.8 Other noninflammatory disorders of ovary, fallopian tube and broad ligament (principal); K21.9 Gastro-esophageal reflux disease without esophagitis; F17.210 Nicotine dependence, cigarettes, uncomplicated; E66.9 Obesity, unspecified; Z68.27 Body mass index [BMI] 27.0-27.9, adult; Z98.890 Other specified postprocedural states; Z79.899 Other long term (current) drug therapy
CPT/HCPCS: 76801; 81001; 96360; 99284; J7040; 99283

== ENCOUNTER 2017-12-10 05:19 | Inpatient (IN) | payer MEDICAID ==
[2017-12-10] MEDS ORDERED: Sodium Chloride 0.9% 2.5 ML Syringe FLUSH PRN (05:33)
[2017-12-10] MEDS ORDERED: ceFAZolin 2 GM in Premix Bag 1 BAG IV ONE (05:33)
[2017-12-10] MEDS ORDERED: Sodium Chloride 0.9% 10 ML Syringe FLUSH PRN (05:33)
[2017-12-10] MEDS ORDERED: Oxytocin/0.9 % Sodium Chloride 30 UNIT/500 ML BAG IV SCH (05:45)
[2017-12-10] MEDS ORDERED: Citric Acid/Sodium Citrate Solution 30 ML Cup PO SCH (05:45)
[2017-12-10] MEDS: Lactated Ringers 1,000 ML IV SCH ×2 (05:57→07:07)
--- NOTE | 2017-12-10 07:14 | PCM.PREANE ---
Preanesthetic Assessment - Anesthesia/Transfusion/Family Hx Anesthesia History: Prior Anesthesia Without Reaction Transfusion History: No Prior Transfusion(s) - Physical Assessment NPO Status Date: 12/10/17 NPO Status Time: 00:01 Height: 1.57 m Weight: 80.739 kg ASA Class: 1 Mental Status: Alert & Oriented x3 Dentition: Reports: Normal Dentition - Lab Values: Laboratory Last Values WBC 11.22 K/uL (4.0-11.0) H 12/10/17 05:53 RBC 3.97 M/uL (4.30-5.90) L 12/10/17 05:53 Hgb 10.0 g/dL (12.0-16.0) L 12/10/17 05:53 Hct 32.1 % (36.0-46.0) L 12/10/17 05:53 MCV 80.9 fL (80.0-98.0) 12/10/17 05:53 MCH 25.2 pg (27.0-32.0) L 12/10/17 05:53 MCHC 31.2 g/dL (31.0-37.0) 12/10/17 05:53 RDW Std Deviation 44.8 fl (28.0-62.0) 12/10/17 05:53 RDW Coeff of Jose De Jesus 16 % (11.0-15.0) H 12/10/17 05:53 Plt Count 386 K/uL (150-400) 12/10/17 05:53 MPV 10.10 fL (7.40-12.00) 12/10/17 05:53 Blood Type O POSITIVE 12/10/17 05:53 Antibody Screen NEGATIVE 12/10/17 05:53 - Allergies Allergies/Adverse Reactions: Allergies Allergy/AdvReac Type Severity Reaction Status Date / Time No Known Allergies Allergy Verified 12/05/17 12:58 - Acknowledgements Anesthesia Type Planned: Spinal Pt an Appropriate Candidate for the Planned Anesthesia: Yes Alternatives and Risks of Anesthesia Discussed w Pt/Guardian: Yes Pt/Guardian Understands and Agrees with Anesthesia Plan: Yes PreAnesthesia Questionnaire HEENT History: Reports: None Other HEENT History: wears glasses Cardiovascular History: Reports: None Respiratory History: Reports: None Gastrointestinal History: Reports: GERD Genitourinary History: Reports: None 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: Musculoskeletal History: Reports: None Neurological History: Reports: None Psychiatric History: Reports: None Endocrine/Metabolic History: Reports: Obesity/BMI 30+ Hematologic History: Reports: None Immunologic History: Reports: None Oncologic (Cancer) History: Reports: None Dermatologic History: Reports: None - Infectious Disease History Infectious Disease History: Reports: None - Past Surgical History Head Surgeries/Procedures: Reports: None Cardiovascular Surgical History: Reports: None Female Surgical History: Reports: Section Other Female Surgeries/Procedures: c/section x4 Neurological Surgical History: Reports: None Musculoskeletal Surgical History: Reports: None - SUBSTANCE USE Smoking Status *Q: Current Every Day Smoker Tobacco Use Within Last Twelve Months: Cigarettes Second Hand Smoke Exposure: Yes Recreational Drug Use History: No - HOME MEDS Home Medications: Home Meds Pnv No.95/Ferrous Fum/Folic AC [ Multivitamin Tablet] 1 each PO DAILY [History] Acetaminophen [Tylenol Extra Strength] 500 mg PO Q3HR PRN 12/05/17 [History] Ferrous Sulfate [Slow Release Iron] 1 tab PO DAILY 12/05/17 [History] - CURRENT (IN HOUSE) MEDS Current Meds: Current Medications Citric Acid/Sodium Citrate (Bicitra Solution) 30 ml PO .ONCE MARY Lactated Ringer's (Ringers, Lactated) 1,000 mls @ 500 mls/hr IV .BOLUS MARY Last Admin: 12/10/17 07:07 Dose: 999 mls/hr Oxytocin/Sodium Chloride (Oxytocin 30 Unit/500 Ml-Ns) 30 unit in 500 mls @ 250 mls/hr IV TITRATE MARY Sodium Chloride (Saline Flush) 10 ml FLUSH ASDIRECTED PRN PRN Reason: Keep Vein Open Sodium Chloride (Saline Flush) 2.5 ml FLUSH ASDIRECTED PRN PRN Reason: Keep Vein Open Discontinued Medications Cefazolin Sodium/Dextrose 2 gm (/ Premix) 50 mls @ 100 mls/hr IV ONETIME ONE Stop: 12/10/17 06:02
[2017-12-10] MEDS ORDERED: Oxytocin 10 Units/1 ML SDV ONE (07:17)
[2017-12-10] MEDS ORDERED: Phenylephrine/Normal Saline 100 MCG/ML 10 ML Syringe ONE (07:17)
[2017-12-10] MEDS ORDERED: ceFAZolin 1 GM Vial ONE (07:17)
[2017-12-10] MEDS ORDERED: Ondansetron 4 MG/2 ML SDV ONE (07:17)
[2017-12-10] MEDS ORDERED: Morphine PF 1 MG/ML Amp ONE (07:18)
--- NOTE | 2017-12-10 07:40 | PCM.SN ---
- Free Text/Narrative Note: chart reviewed, pt interviewed, consent obtained and questions answered. Plan discussed with FORENSIC ENGINEER
[2017-12-10] MEDS ORDERED: Acetaminophen/oxyCODONE 325-5 MG Tab PO PRN (08:23)
--- NOTE | 2017-12-10 08:58 | PCM.OPNOTE ---
<Maria Luisa Marinelli - Last Filed: 12/10/17 08:54> - General Post-Op/Procedure Note Date of Surgery/Procedure: 12/10/17 Operative Procedure(s): Repeat Findings: viable male, apgars 9 & 9, weight: 3160g; delivery of intact 3V cord & placenta. Pre Op Diagnosis: 39 week intrauterine , Repeat Post-Op Diagnosis: same Anesthesia Technique: Spinal Primary Surgeon: Fela Longoria Starter Mechanic: Maria Luisa Marinelli Fluid Replacement, Intraop: 2,300 EBL in mLs: 600 Complications: none known Condition: Stable <Fela Longoria - Last Filed: 12/10/17 09:03> - General Post-Op/Procedure Note Free Text/Narrative:: Intake & Output 12/09/17 12/10/17 12/10/17 22:59 06:59 14:59 Intake Total 2300 Balance 2300 Dictation [id number]
[2017-12-10] MEDS ORDERED: Ondansetron 4 MG/2 ML SDV IV PRN (09:03)
[2017-12-10] MEDS ORDERED: Ibuprofen 800 MG Tab PO PRN (09:03)
[2017-12-10] MEDS ORDERED: Lanolin 100% Cream 7 GM Tube TOP PRN (09:03)
[2017-12-10] MEDS ORDERED: Simethicone 80 MG Tab.Chew PO PRN (09:03)
[2017-12-10] MEDS ORDERED: Bisacodyl 10 MG Supp RECTAL PRN (09:03)
[2017-12-10] MEDS ORDERED: Aluminum Hydroxide/Magnesium Hydroxide/Simethicone Susp 30 ML Cup PO PRN (09:03)
[2017-12-10] MEDS ORDERED: Lactated Ringers 1,000 ML IV SCH (09:15)
[2017-12-10] MEDS: Ketorolac 30 MG/ML SDV IVPUSH SCH ×3 (09:21→21:09)
--- NOTE | 2017-12-10 09:22 | PCM.POSTAN ---
POST ANESTHESIA ASSESSMENT - MENTAL STATUS Mental Status: Alert, Oriented - RESPIRATORY Respiratory Status: Respiratory Rate WNL, Airway Patent, O2 Saturation Stable - CARDIOVASCULAR CV Status: Pulse Rate WNL, Blood Pressure Stable - GASTROINTESTINAL GI Status: No Symptoms - POST OP HYDRATION Hydration Status: Adequate & Stable
[2017-12-10] MEDS: diphenhydrAMINE 50 MG/ML SDV IVPUSH PRN ×2 (10:02→18:20)
[2017-12-10] MEDS: fentaNYL 100 MCG/2 ML SDV IVPUSH PRN ×3 (10:02→13:05)
--- NOTE | 2017-12-10 10:12 | OR ---
SURGEON: Fela Longoria M.D. DATE OF PROCEDURE: 12/10/2017 Delivery Note PREOPERATIVE DIAGNOSES: 1. A 39-week intrauterine . 2. Previous section, desires repeat. POSTOPERATIVE DIAGNOSES: 1. A 39-week intrauterine . 2. Previous section, desires repeat. PROCEDURE: Repeat low-transverse section via Pfannenstiel skin incision. PRIMARY SURGEON: Fela Longoria M.D. ELECTRICAL LINEMAN: Sourav Marinelli MS4. ANESTHESIA: Spinal. ESTIMATED BLOOD LOSS: 600 mL. FLUIDS: 2300 mL crystalloid. COMPLICATIONS: None. FINDINGS: Viable male, Apgars 9 at 1 minute, 9 at 5 minutes. Weight of 3160 g, intact delivery, intact placenta, 3-vessel cord. DISPOSITION: The patient to PACU, infant to nursery. PROCEDURE IN DETAIL: Shaila is a 22-year-old, G5, P4 at 39, 2 weeks' gestational age, who presents today for scheduled repeat delivery. The risks of procedure have been discussed and proper consent obtained. The patient was taken to the operating room, where she underwent spinal anesthetic, was placed in a dorsal supine position with leftward tilt, SCDs to lower extremities, Rhodes to gravity, was prepped and draped in usual sterile fashion. A time-out was performed. She received prophylactic antibiotics. After being prepped and draped in the usual sterile fashion, anesthesia was found to be adequate. Previous Pfannenstiel scar was now excised. Subcutaneous tissue was incised down to the level of the rectus fascia, which was incised in the midline. The midline was lateralized on either side sharply and bluntly. The superior aspect of the fascia and inferior aspect of the fascia were now dissected sharply and bluntly away from the underlying muscle. Muscle was in the midline with hemostat. The peritoneum was tented upward and entered sharply. The rectus muscle and peritoneum were now dissected sagittally in the midline. The rectus muscle and peritoneum were now lateralized bluntly. Uterine position and position gently palpated. Self-retaining retractor gently placed. Uterovesical reflection was visualized. There was a significant amount of uterovesical adhesions as to be expected. These were gently lysed sharply. The bladder was mobilized away from the lower uterine segment. The lower uterine segment was quite thin, as to be expected. Low transverse hysterotomy was now performed. Uterine cavity was entered bluntly with the scalpel. Hysterotomy was lateralized bluntly. Amniotomy was performed. Clear fluid was returned. The 's head was flexed, delivered from the pelvis. Fundal pressure was applied. The 's head was delivered followed by anterior shoulder push, remainder of the body without difficulty. The 's oropharynx and nares bulb suctioned. Cord clamped x2 and cut. was handed off to attending nursing staff. Cord arterial, cord venous, cord blood sampling was obtained. The placenta was now delivered. Uterine cavity was cleared of all clot and debris. Hysterotomy was repaired using 0 Vicryl in continuous running locked fashion followed by re-imbricating layer. There was a significant area of weakness along the distal midline left of the hysterotomy in the uterus. This was replicated with two [id number] sutures. The posterior aspect of the uterus has no defects or hematomas found to be forming. The colonic gutters were cleared of all clot, debris, well irrigated, suction dried. The hysterotomy was again inspected and found to be hemostatic. Self-retaining retractor gently removed. The hysterotomy was again inspected and found to be hemostatic. The rectus muscles and peritoneum were reapproximated using 0 Vicryl with inverted mattress suture technique. Anterior aspect of the muscle and posterior aspect of the fascia were closely inspected. Any areas of oozing were cauterized. The rectus fascia was reapproximated using 0 Vicryl in continuous running fashion beginning laterally on either side and meeting in the midline. Subcutaneous tissue was well irrigated and suction dried. Any areas of oozing were cauterized. The subcutaneous tissues were reapproximated using 3-0 plain in continuous running fashion. The areas were well irrigated once again. The skin edges were reapproximated using 3-0 Vicryl in a Reginald needle in a subcuticular fashion followed by placement of half-inch Steri-Strips with Mastisol. Uterus remained firm. Sponge, instrument, and needle counts were correct x2. The patient tolerated the procedure well overall. She will go to PACU in stable condition. to nursery. JOHNATHAN / HOLLAND /[id number]
[2017-12-10] MEDS: Nalbuphine 10 MG/1 ML Vial IVPUSH PRN ×2 (13:06→22:40)
--- NOTE | 2017-12-10 15:21 | PCM.SN ---
- Free Text/Narrative Note: Having some incisional pain, but is able to sit up, tolerating diet. Lochia was initially slightly heavy, but has dissipated with second bag of pitocin. Patient is bottle feeding. VS are stable. UOP adequate. Continue postoperative cares.
[2017-12-10] MEDS: Acetaminophen/oxyCODONE 325-5 MG Tab PO PRN ×2 (17:36→22:27)
[2017-12-10] MEDS: Docusate Sodium 100 MG Cap PO SCH (21:11)
[2017-12-11] MEDS: Ketorolac 30 MG/ML SDV IVPUSH SCH ×2 (03:41→09:36)
[2017-12-11] MEDS: Acetaminophen/oxyCODONE 325-5 MG Tab PO PRN ×4 (03:46→23:15)
--- NOTE | 2017-12-11 07:33 | PCM48HPAN ---
Post Anesthesia Note - EVALUATION WITHIN 48HRS OF ANESTHETIC Vital Signs in Normal Range: Yes Patient Participated in Evaluation: Yes Respiratory Function Stable: Yes Airway Patent: Yes Cardiovascular Function Stable: Yes Hydration Status Stable: Yes Pain Control Satisfactory: Yes Nausea and Vomiting Control Satisfactory: Yes Mental Status Recovered: Yes Resp Rate: 19
--- NOTE | 2017-12-11 07:50 | PCM.PNPP ---
<Maria Luisa Marinelli - Last Filed: 12/11/17 07:45> - General Info Date of Service: 12/11/17 Admission Dx/Problem (Free Text): 39 week intrauterine , repeat Subjective Update: Patient is doing well. Formula feeding. Lochia - WNL. Pain is well controlled with medications. Has tolerated food with no n/v. Rhodes has been removed and she is urinating. No bowel movement or flatus present. SCDs are on and she is using her ICS. Ambulating. Anticipate discharge tomorrow. Functional Status: Reports: Pain Controlled, Tolerating Diet, Ambulating, Urinating - Review of Systems General: Denies: Fever, Chills HEENT: Denies: Headaches Pulmonary: Denies: Shortness of Breath, Pleuritic Chest Pain Cardiovascular: Denies: Chest Pain, Palpitations, Lightheadedness Gastrointestinal: Denies: Abdominal Pain, Flatus, Nausea, Vomiting - General Info Date of Service: 12/11/17 - Patient Data Vital Signs - Most Recent: Last Vital Signs Temp 36.8 C 12/11/17 04:00 Pulse 75 12/11/17 06:57 Resp 19 12/11/17 07:33 BP 114/81 12/11/17 04:00 Pulse Ox 100 12/11/17 06:57 Weight - Most Recent: 80.739 kg I&O - Last 24 Hours: Intake & Output 12/10/17 12/11/17 12/11/17 22:59 06:59 14:59 Output Total 1150 900 Balance -1150 -900 Lab Results - Last 24 Hours: Laboratory Results - last 24 hr 12/11/17 Range/Units 06:05 Hgb 8.6 L (12.0-16.0) g/dL Hct 27.7 L (36.0-46.0) % Med Orders - Current: Current Medications Al Hydroxide/Mg Hydroxide (Mag-Al Plus) 30 ml PO Q8H PRN PRN Reason: Heartburn Bisacodyl (Dulcolax) 10 mg RECTAL .ONCE PRN PRN Reason: Constipation Citric Acid/Sodium Citrate (Bicitra Solution) 30 ml PO .ONCE MARY Last Admin: 12/10/17 07:49 Dose: 30 ml Diphenhydramine HCl (Benadryl) 25 mg IVPUSH Q6H PRN PRN Reason: Itching or Nausea Last Admin: 12/10/17 18:20 Dose: 25 mg Docusate Sodium (Colace) 100 mg PO BID [facility] Last Admin: 12/10/17 21:11 Dose: 100 mg Emollient Ointment (Lansinoh Hpa) 0 gm TOP ASDIRECTED PRN PRN Reason: Sore Nipples Fentanyl (Sublimaze) 50 mcg IVPUSH Q5M PRN PRN Reason: Pain (severe 7-10) Stop: 12/11/17 08:23 Last Admin: 12/10/17 13:05 Dose: 50 mcg Lactated Ringer's (Ringers, Lactated) 1,000 mls @ 500 mls/hr IV .BOLUS [facility] Last Admin: 12/10/17 07:07 Dose: 999 mls/hr Oxytocin/Sodium Chloride (Oxytocin 30 Unit/500 Ml-Ns) 30 unit in 500 mls @ 250 mls/hr IV TITRATE [facility] Last Admin: 12/10/17 11:38 Dose: 250 mls/hr Lactated Ringer's (Ringers, Lactated) 1,000 mls @ 125 mls/hr IV ASDIRECTED [facility] Last Admin: 12/10/17 15:39 Dose: 125 mls/hr Ibuprofen (Motrin) 800 mg PO Q8H PRN PRN Reason: mild pain or fever Ketorolac Tromethamine (Toradol) 30 mg IVPUSH Q6H [facility] Stop: 12/11/17 09:16 Last Admin: 12/11/17 03:41 Dose: 30 mg Nalbuphine HCl (Nubain) 2.5 mg IVPUSH Q3H PRN PRN Reason: Pruritis Stop: 12/11/17 08:23 Last Admin: 12/10/17 22:40 Dose: 2.5 mg Ondansetron HCl (Zofran) 4 mg IV Q4H PRN PRN Reason: Nausea/Vomiting Oxycodone/Acetaminophen (Percocet 325-5 Mg) 1 tab PO ONETIME PRN PRN Reason: Pain (moderate 4-6) Oxycodone/Acetaminophen (Percocet 325-5 Mg) 1 tab PO Q4H PRN PRN Reason: Pain (moderate 4-6) Last Admin: 12/10/17 17:36 Dose: 1 tab Oxycodone/Acetaminophen (Percocet 325-5 Mg) 2 tab PO Q4H PRN PRN Reason: Pain (moderate 4-6) Oxycodone/Acetaminophen (Percocet 325-5 Mg) 1 tab PO Q4H PRN PRN Reason: Pain (severe 7-10) Last Admin: 12/11/17 03:46 Dose: 1 tab Simethicone (Simethicone) 80 mg PO Q4H PRN PRN Reason: Gas Sodium Chloride (Saline Flush) 10 ml FLUSH ASDIRECTED PRN PRN Reason: Keep Vein Open Sodium Chloride (Saline Flush) 2.5 ml FLUSH ASDIRECTED PRN PRN Reason: Keep Vein Open Discontinued Medications Cefazolin Sodium (Ancef) Confirm Administered Dose 2 gm .ROUTE .STK-MED ONE Stop: 12/10/17 07:18 Cefazolin Sodium/Dextrose 2 gm (/ Premix) 50 mls @ 100 mls/hr IV ONETIME ONE Stop: 12/10/17 06:02 Morphine Sulfate (Duramorph Pf) Confirm Administered Dose 1 mg .ROUTE .STK-MED ONE Stop: 12/10/17 07:19 Ondansetron HCl (Zofran) Confirm Administered Dose 4 mg .ROUTE .STK-MED ONE Stop: 12/10/17 07:18 Oxytocin (Pitocin) Confirm Administered Dose 20 unit .ROUTE .STK-MED ONE Stop: 12/10/17 07:18 Phenylephrine HCl (Phenylephrine In Ns 100 Mcg/Ml) Confirm Administered Dose 1 mg .ROUTE .STK-MED ONE Stop: 12/10/17 07:18 - Interaction Infant Disposition, : [place] in Room with Family Infant Interaction: Holding Infant Feeding: Bottle Fed Infant Support Person: Significant Other - Recovery Exam Fundal Tone: Firm Fundal Placement: Midline Lochia Amount: Scant Lochia Color: Rubra/Red Bladder Status: Voiding Urinary Elimination: Voided - Exam General: Alert, Oriented, No Acute Distress Lungs: Clear to Auscultation, Normal Respiratory Effort Cardiovascular: Regular Rate, Regular Rhythm GI/Abdominal Exam: Soft, Non-Tender Extremities: No Pedal Edema Skin: Warm, Dry, Intact Wound/Incisions: Healing Well Psy/Mental Status: Alert - Problem List & Annotations (1) delivery delivered SNOMED Code(s): 907725829 Code(s): O82 - ENCOUNTER FOR DELIVERY WITHOUT INDICATION Status: Acute - Assessment Assessment:: Repeat POD#1. Stable. Anticipate discharge tomorrow. - Plan Plan:: Routine post- and post-op cares. <Fela Longoria - Last Filed: 12/11/17 14:11> - Patient Data Vital Signs - Most Recent: Last Vital Signs Temp 36.6 C 12/11/17 08:00 Pulse 84 12/11/17 08:00 Resp 16 12/11/17 08:00 BP 107/58 L 12/11/17 08:00 Pulse Ox 96 12/11/17 08:00 I&O - Last 24 Hours: Intake & Output 12/10/17 12/11/17 12/11/17 22:59 06:59 14:59 Output Total 1150 900 Balance -1150 -900 Lab Results - Last 24 Hours: Laboratory Results - last 24 hr 12/11/17 Range/Units 06:05 Hgb 8.6 L (12.0-16.0) g/dL Hct 27.7 L (36.0-46.0) % Med Orders - Current: Current Medications Al Hydroxide/Mg Hydroxide (Mag-Al Plus) 30 ml PO Q8H PRN PRN Reason: Heartburn Bisacodyl (Dulcolax) 10 mg RECTAL .ONCE PRN PRN Reason: Constipation Citric Acid/Sodium Citrate (Bicitra Solution) 30 ml PO .ONCE MARY Last Admin: 12/10/17 07:49 Dose: 30 ml Diphenhydramine HCl (Benadryl) 25 mg IVPUSH Q6H PRN PRN Reason: Itching or Nausea Last Admin: 12/10/17 18:20 Dose: 25 mg Docusate Sodium (Colace) 100 mg PO BID MARY Last Admin: 12/11/17 09:36 Dose: 100 mg Emollient Ointment (Lansinoh Hpa) 0 gm TOP ASDIRECTED PRN PRN Reason: Sore Nipples Lactated Ringer's (Ringers, Lactated) 1,000 mls @ 500 mls/hr IV .BOLUS [facility] Last Admin: 12/10/17 07:07 Dose: 999 mls/hr Oxytocin/Sodium Chloride (Oxytocin 30 Unit/500 Ml-Ns) 30 unit in 500 mls @ 250 mls/hr IV TITRATE [facility] Last Admin: 12/10/17 11:38 Dose: 250 mls/hr Lactated Ringer's (Ringers, Lactated) 1,000 mls @ 125 mls/hr IV ASDIRECTED [facility] Last Admin: 12/10/17 15:39 Dose: 125 mls/hr Ibuprofen (Motrin) 800 mg PO Q8H PRN PRN Reason: mild pain or fever Ondansetron HCl (Zofran) 4 mg IV Q4H PRN PRN Reason: Nausea/Vomiting Oxycodone/Acetaminophen (Percocet 325-5 Mg) 1 tab PO ONETIME PRN PRN Reason: Pain (moderate 4-6) Oxycodone/Acetaminophen (Percocet 325-5 Mg) 1 tab PO Q4H PRN PRN Reason: Pain (moderate 4-6) Last Admin: 12/10/17 17:36 Dose: 1 tab Oxycodone/Acetaminophen (Percocet 325-5 Mg) 2 tab PO Q4H PRN PRN Reason: Pain (moderate 4-6) Last Admin: 12/11/17 13:23 Dose: 2 tab Oxycodone/Acetaminophen (Percocet 325-5 Mg) 1 tab PO Q4H PRN PRN Reason: Pain (severe 7-10) Last Admin: 12/11/17 03:46 Dose: 1 tab Simethicone (Simethicone) 80 mg PO Q4H PRN PRN Reason: Gas Sodium Chloride (Saline Flush) 10 ml FLUSH ASDIRECTED PRN PRN Reason: Keep Vein Open Sodium Chloride (Saline Flush) 2.5 ml FLUSH ASDIRECTED PRN PRN Reason: Keep Vein Open Discontinued Medications Cefazolin Sodium (Ancef) Confirm Administered Dose 2 gm .ROUTE .STK-MED ONE Stop: 12/10/17 07:18 Fentanyl (Sublimaze) 50 mcg IVPUSH Q5M PRN PRN Reason: Pain (severe 7-10) Stop: 12/11/17 08:23 Last Admin: 12/10/17 13:05 Dose: 50 mcg Cefazolin Sodium/Dextrose 2 gm (/ Premix) 50 mls @ 100 mls/hr IV ONETIME ONE Stop: 12/10/17 06:02 Ketorolac Tromethamine (Toradol) 30 mg IVPUSH Q6H [facility]ARY Stop: 12/11/17 09:16 Last Admin: 12/11/17 09:36 Dose: 30 mg Morphine Sulfate (Duramorph Pf) Confirm Administered Dose 1 mg .ROUTE .STK-MED ONE Stop: 12/10/17 07:19 Nalbuphine HCl (Nubain) 2.5 mg IVPUSH Q3H PRN PRN Reason: Pruritis Stop: 12/11/17 08:23 Last Admin: 12/10/17 22:40 Dose: 2.5 mg Ondansetron HCl (Zofran) Confirm Administered Dose 4 mg .ROUTE .STK-MED ONE Stop: 12/10/17 07:18 Oxytocin (Pitocin) Confirm Administered Dose 20 unit .ROUTE .STK-MED ONE Stop: 12/10/17 07:18 Phenylephrine HCl (Phenylephrine In Ns 100 Mcg/Ml) Confirm Administered Dose 1 mg .ROUTE .STK-MED ONE Stop: 12/10/17 07:18 - Problem List & Annotations (1) delivery delivered SNOMED Code(s): 136410540 Code(s): O82 - ENCOUNTER FOR DELIVERY WITHOUT INDICATION Status: Acute Current Visit: No - Problem List Review Problem List Initiated/Reviewed/Updated: Yes - My Orders Last 24 Hours: My Active Orders 12/10/17 21:00 Docusate Sodium [Colace] 100 mg PO BID - Plan Plan:: patient seen and examined--agree with above.
[2017-12-11] MEDS: Docusate Sodium 100 MG Cap PO SCH ×2 (09:36→21:24)
[2017-12-12] MEDS: Acetaminophen/oxyCODONE 325-5 MG Tab PO PRN (07:36)
--- NOTE | 2017-12-12 08:54 | PCM.PNPP ---
<Maria Luisa Marinelli - Last Filed: 12/12/17 08:49> - General Info Date of Service: 12/12/17 Admission Dx/Problem (Free Text): 39 week intrauterine , repeat Subjective Update: Patient is doing well. Formula feeding, although attempting to breastfeed. Lochia - WNL. Pain is well controlled with medications. Has tolerated food with no n/v. Urinating. No bowel movement, but flatus is present. Ambulating. Patient describes a "lump" found on her stomach. It is a 6 cm spherical, slightly edematous, erythematous lesion located above her incisions. Anticipate discharge tomorrow. Functional Status: Reports: Pain Controlled, Tolerating Diet, Ambulating, Urinating - Review of Systems General: Denies: Fever, Chills HEENT: Denies: Headaches Pulmonary: Denies: Shortness of Breath, Pleuritic Chest Pain Cardiovascular: Denies: Chest Pain, Palpitations, Lightheadedness Gastrointestinal: Reports: Flatus. Denies: Abdominal Pain, Nausea, Vomiting - General Info Date of Service: 12/12/17 - Patient Data Vital Signs - Most Recent: Last Vital Signs Temp 36.6 C 12/11/17 23:10 Pulse 75 12/11/17 23:10 Resp 18 12/11/17 23:10 BP 127/75 12/11/17 23:10 Pulse Ox 97 12/11/17 23:10 Weight - Most Recent: 80.739 kg Med Orders - Current: Current Medications Al Hydroxide/Mg Hydroxide (Mag-Al Plus) 30 ml PO Q8H PRN PRN Reason: Heartburn Bisacodyl (Dulcolax) 10 mg RECTAL .ONCE PRN PRN Reason: Constipation Citric Acid/Sodium Citrate (Bicitra Solution) 30 ml PO .ONCE MARY Last Admin: 12/10/17 07:49 Dose: 30 ml Diphenhydramine HCl (Benadryl) 25 mg IVPUSH Q6H PRN PRN Reason: Itching or Nausea Last Admin: 12/10/17 18:20 Dose: 25 mg Docusate Sodium (Colace) 100 mg PO BID MARY Last Admin: 12/11/17 21:24 Dose: 100 mg Emollient Ointment (Lansinoh Hpa) 0 gm TOP ASDIRECTED PRN PRN Reason: Sore Nipples Lactated Ringer's (Ringers, Lactated) 1,000 mls @ 500 mls/hr IV .BOLUS [facility] Last Admin: 12/10/17 07:07 Dose: 999 mls/hr Oxytocin/Sodium Chloride (Oxytocin 30 Unit/500 Ml-Ns) 30 unit in 500 mls @ 250 mls/hr IV TITRATE [facility] Last Admin: 12/10/17 11:38 Dose: 250 mls/hr Lactated Ringer's (Ringers, Lactated) 1,000 mls @ 125 mls/hr IV ASDIRECTED [facility] Last Admin: 12/10/17 15:39 Dose: 125 mls/hr Ibuprofen (Motrin) 800 mg PO Q8H PRN PRN Reason: mild pain or fever Last Admin: 12/11/17 18:28 Dose: 800 mg Ondansetron HCl (Zofran) 4 mg IV Q4H PRN PRN Reason: Nausea/Vomiting Oxycodone/Acetaminophen (Percocet 325-5 Mg) 1 tab PO ONETIME PRN PRN Reason: Pain (moderate 4-6) Oxycodone/Acetaminophen (Percocet 325-5 Mg) 1 tab PO Q4H PRN PRN Reason: Pain (moderate 4-6) Last Admin: 12/11/17 18:28 Dose: 1 tab Oxycodone/Acetaminophen (Percocet 325-5 Mg) 2 tab PO Q4H PRN PRN Reason: Pain (moderate 4-6) Last Admin: 12/12/17 07:36 Dose: 2 tab Oxycodone/Acetaminophen (Percocet 325-5 Mg) 1 tab PO Q4H PRN PRN Reason: Pain (severe 7-10) Last Admin: 12/11/17 03:46 Dose: 1 tab Simethicone (Simethicone) 80 mg PO Q4H PRN PRN Reason: Gas Sodium Chloride (Saline Flush) 10 ml FLUSH ASDIRECTED PRN PRN Reason: Keep Vein Open Sodium Chloride (Saline Flush) 2.5 ml FLUSH ASDIRECTED PRN PRN Reason: Keep Vein Open Discontinued Medications Cefazolin Sodium (Ancef) Confirm Administered Dose 2 gm .ROUTE .STK-MED ONE Stop: 12/10/17 07:18 Fentanyl (Sublimaze) 50 mcg IVPUSH Q5M PRN PRN Reason: Pain (severe 7-10) Stop: 12/11/17 08:23 Last Admin: 12/10/17 13:05 Dose: 50 mcg Cefazolin Sodium/Dextrose 2 gm (/ Premix) 50 mls @ 100 mls/hr IV ONETIME ONE Stop: 12/10/17 06:02 Last Admin: 12/11/17 18:22 Dose: Not Given Ketorolac Tromethamine (Toradol) 30 mg IVPUSH Q6H [facility] Stop: 12/11/17 09:16 Last Admin: 12/11/17 09:36 Dose: 30 mg Morphine Sulfate (Duramorph Pf) Confirm Administered Dose 1 mg .ROUTE .STK-MED ONE Stop: 12/10/17 07:19 Nalbuphine HCl (Nubain) 2.5 mg IVPUSH Q3H PRN PRN Reason: Pruritis Stop: 12/11/17 08:23 Last Admin: 12/10/17 22:40 Dose: 2.5 mg Ondansetron HCl (Zofran) Confirm Administered Dose 4 mg .ROUTE .STK-MED ONE Stop: 12/10/17 07:18 Oxytocin (Pitocin) Confirm Administered Dose 20 unit .ROUTE .STK-MED ONE Stop: 12/10/17 07:18 Phenylephrine HCl (Phenylephrine In Ns 100 Mcg/Ml) Confirm Administered Dose 1 mg .ROUTE .STK-MED ONE Stop: 12/10/17 07:18 - Interaction Disposition, : in Room with Family Infant Interaction: Holding Infant Infant Feeding: Attempted ; Nursed Fair/Poor, Bottle Fed Support Person: Significant Other - Recovery Exam Fundal Tone: Firm Fundal Level: 2 Fingerbreadths Below Umbilicus Fundal Placement: Midline Lochia Amount: Scant Lochia Color: Rubra/Red Episiotomy/Laceration: None Bladder Status: Voiding Urinary Elimination: Voided - Exam General: Alert, Oriented, No Acute Distress Lungs: Clear to Auscultation, Normal Respiratory Effort Cardiovascular: Regular Rate, Regular Rhythm GI/Abdominal Exam: Soft, Non-Tender Extremities: No Pedal Edema Skin: Warm, Dry, Intact Wound/Incisions: Healing Well Psy/Mental Status: Alert Physical Findings Comment:: 6 cm slightly edematous, erythematous spherical lesion located above incision. - Problem List & Annotations (1) delivery delivered SNOMED Code(s): 519646310 Code(s): O82 - ENCOUNTER FOR DELIVERY WITHOUT INDICATION Status: Acute - Assessment Assessment:: Repeat POD#2. Stable. Anticipate discharge today. - Plan Plan:: Discharge instructions reviewed. Continue PNV while . Pelvic rest for 6 weeks. Take OTC ibuprofen/tylenol as needed for pain. Call if fever greater than 101 or bleeding through a heavy pad in an hour. Post- depression symptoms reviewed. Follow-up appointment in 2 and 6 weeks. <Fela Longoria - Last Filed: 12/12/17 09:11> - Patient Data Vital Signs - Most Recent: Last Vital Signs Temp 36.6 C 12/11/17 23:10 Pulse 75 12/11/17 23:10 Resp 18 12/11/17 23:10 BP 127/75 12/11/17 23:10 Pulse Ox 97 12/11/17 23:10 Med Orders - Current: Current Medications Al Hydroxide/Mg Hydroxide (Mag-Al Plus) 30 ml PO Q8H PRN PRN Reason: Heartburn Bisacodyl (Dulcolax) 10 mg RECTAL .ONCE PRN PRN Reason: Constipation Citric Acid/Sodium Citrate (Bicitra Solution) 30 ml PO .ONCE [facility] Last Admin: 12/10/17 07:49 Dose: 30 ml Diphenhydramine HCl (Benadryl) 25 mg IVPUSH Q6H PRN PRN Reason: Itching or Nausea Last Admin: 12/10/17 18:20 Dose: 25 mg Docusate Sodium (Colace) 100 mg PO BID [facility] Last Admin: 12/12/17 09:07 Dose: 100 mg Emollient Ointment (Lansinoh Hpa) 0 gm TOP ASDIRECTED PRN PRN Reason: Sore Nipples Lactated Ringer's (Ringers, Lactated) 1,000 mls @ 500 mls/hr IV .BOLUS [facility] Last Admin: 12/10/17 07:07 Dose: 999 mls/hr Oxytocin/Sodium Chloride (Oxytocin 30 Unit/500 Ml-Ns) 30 unit in 500 mls @ 250 mls/hr IV TITRATE [facility] Last Admin: 12/10/17 11:38 Dose: 250 mls/hr Lactated Ringer's (Ringers, Lactated) 1,000 mls @ 125 mls/hr IV ASDIRECTED [facility] Last Admin: 12/10/17 15:39 Dose: 125 mls/hr Ibuprofen (Motrin) 800 mg PO Q8H PRN PRN Reason: mild pain or fever Last Admin: 12/11/17 18:28 Dose: 800 mg Ondansetron HCl (Zofran) 4 mg IV Q4H PRN PRN Reason: Nausea/Vomiting Oxycodone/Acetaminophen (Percocet 325-5 Mg) 1 tab PO ONETIME PRN PRN Reason: Pain (moderate 4-6) Oxycodone/Acetaminophen (Percocet 325-5 Mg) 1 tab PO Q4H PRN PRN Reason: Pain (moderate 4-6) Last Admin: 12/11/17 18:28 Dose: 1 tab Oxycodone/Acetaminophen (Percocet 325-5 Mg) 2 tab PO Q4H PRN PRN Reason: Pain (moderate 4-6) Last Admin: 12/12/17 07:36 Dose: 2 tab Oxycodone/Acetaminophen (Percocet 325-5 Mg) 1 tab PO Q4H PRN PRN Reason: Pain (severe 7-10) Last Admin: 12/11/17 03:46 Dose: 1 tab Simethicone (Simethicone) 80 mg PO Q4H PRN PRN Reason: Gas Sodium Chloride (Saline Flush) 10 ml FLUSH ASDIRECTED PRN PRN Reason: Keep Vein Open Sodium Chloride (Saline Flush) 2.5 ml FLUSH ASDIRECTED PRN PRN Reason: Keep Vein Open Discontinued Medications Cefazolin Sodium (Ancef) Confirm Administered Dose 2 gm .ROUTE .STK-MED ONE Stop: 12/10/17 07:18 Fentanyl (Sublimaze) 50 mcg IVPUSH Q5M PRN PRN Reason: Pain (severe 7-10) Stop: 12/11/17 08:23 Last Admin: 12/10/17 13:05 Dose: 50 mcg Cefazolin Sodium/Dextrose 2 gm (/ Premix) 50 mls @ 100 mls/hr IV ONETIME ONE Stop: 12/10/17 06:02 Last Admin: 12/11/17 18:22 Dose: Not Given Ketorolac Tromethamine (Toradol) 30 mg IVPUSH Q6H [facility] Stop: 12/11/17 09:16 Last Admin: 12/11/17 09:36 Dose: 30 mg Morphine Sulfate (Duramorph Pf) Confirm Administered Dose 1 mg .ROUTE .STK-MED ONE Stop: 12/10/17 07:19 Nalbuphine HCl (Nubain) 2.5 mg IVPUSH Q3H PRN PRN Reason: Pruritis Stop: 12/11/17 08:23 Last Admin: 12/10/17 22:40 Dose: 2.5 mg Ondansetron HCl (Zofran) Confirm Administered Dose 4 mg .ROUTE .STK-MED ONE Stop: 12/10/17 07:18 Oxytocin (Pitocin) Confirm Administered Dose 20 unit .ROUTE .STK-MED ONE Stop: 12/10/17 07:18 Phenylephrine HCl (Phenylephrine In Ns 100 Mcg/Ml) Confirm Administered Dose 1 mg .ROUTE .STK-MED ONE Stop: 12/10/17 07:18 - Problem List & Annotations (1) delivery delivered SNOMED Code(s): 484702268 Code(s): O82 - ENCOUNTER FOR DELIVERY WITHOUT INDICATION Status: Acute - Problem List Review Problem List Initiated/Reviewed/Updated: Yes - Plan Plan:: Patient seen and examined, agree with above. Patient is planning IUD for contraception. Discharge to home today. Follow up as above.
[2017-12-12] MEDS: Docusate Sodium 100 MG Cap PO SCH (09:07)
[2017-12-12 11:14] VITALS: BP 108/57
== END 2017-12-12 10:10 | disposition home or self-care (01) | DRG 766 ==
LOC: MW.OB 05:19
PROVIDERS: ADMIT Obstetrics & Gynecology; ATTEND Obstetrics & Gynecology
PROC: 10D00Z1 Extraction of Products of Conception, Low, Open Approach (ICD-10-PCS; principal; 2017-12-10)
PROC: 10907ZC Drainage of Amniotic Fluid, Therapeutic from Products of Conception, Via Natural or Artificial Opening (ICD-10-PCS; 2017-12-10)
DX: O34.211 Maternal care for low transverse scar from previous cesarean delivery (principal); Z3A.39 39 weeks gestation of pregnancy; Z37.0 Single live birth
CPT/HCPCS: 01961; 36415; 59025; 85014; 85018; 85027; 86850; 86900; 86901; A9270-GY; J0690; J1200; J1885; J2274; J2300; J2405; J2590; J3010; J7120

== ENCOUNTER 2019-07-11 14:24 | Emergency (ER) | payer SELFPAY ==
[2019-07-11 14:35] VITALS: BP 120/73; PULSE 79
--- NOTE | 2019-07-11 14:35 | EDM.PDOC ---
ED HPI GENERAL MEDICAL PROBLEM - General Chief Complaint: Bite:Animal, Insect Stated Complaint: BUG BITE Time Seen by Provider: 07/11/19 14:27 - History of Present Illness INITIAL COMMENTS - FREE TEXT/NARRATIVE: HISTORY AND PHYSICAL: History of present illness: Patient's 23-year-old female presents with concern of cutaneous lesions to her left leg with some surrounding erythema she is unsure if this was an insect bite she does not recall any other injury or concerns been no fever chills nausea vomiting or other complaints Review of systems: As per history of present illness and below otherwise all systems reviewed and negative. Past medical history: As per history of present illness and as reviewed below otherwise noncontributory. Surgical history: As per history of present illness and as reviewed below otherwise noncontributory. Social history: No reported history of drug or alcohol abuse. Family history: As per history of present illness and as reviewed below otherwise noncontributory. Physical exam: HEENT: Atraumatic, normocephalic, pupils reactive, negative for conjunctival pallor or scleral icterus, mucous membranes moist, throat clear, neck supple, nontender, trachea midline. Lungs: Clear to auscultation, breath sounds equal bilaterally, chest nontender. Heart: S1S2, regular, negative for clicks, rubs, or JVD. Abdomen: Soft, nondistended, nontender. Negative for masses or hepatosplenomegaly. Negative for costovertebral tenderness. Pelvis: Stable nontender. Genitourinary: Deferred. Rectal: Deferred. Extremities: Left lower extremity is multiple macular areas that are slightly erythematous with no fluctuance 1 does have slight streak distal to it this is extended several centimeters CMS neurovascular exam are unremarkable Neuro: Awake, alert, oriented. Cranial nerves II through XII unremarkable. Cerebellum unremarkable. Motor and sensory unremarkable throughout. Exam nonfocal. Diagnostics: None Therapeutics: None Impression: #1 cutaneous lesions rule out cellulitis Definitive disposition and diagnosis as appropriate pending reevaluation and review of above. - Related Data Allergies Allergy/AdvReac Type Severity Reaction Status Date / Time No Known Allergies Allergy Verified 06/16/18 19:37 Home Meds: Home Meds . 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: Musculoskeletal History: Reports: None Neurological History: Reports: None Psychiatric History: Reports: None Endocrine/Metabolic History: Reports: Obesity/BMI 30+ Hematologic History: Reports: None Immunologic History: Reports: None Oncologic (Cancer) History: Reports: None Dermatologic History: Reports: None - Infectious Disease History Infectious Disease History: Reports: None - Past Surgical History Head Surgeries/Procedures: Reports: None HEENT Surgical History: Reports: Adenoidectomy, Tonsillectomy Cardiovascular Surgical History: Reports: None Female Surgical History: Reports: Section Other Female Surgeries/Procedures: c/section x4 Neurological Surgical History: Reports: None Musculoskeletal Surgical History: Reports: None Social & Family History - Family History Family Medical History: Noncontributory Cardiac: Reports: Other (See Below) Other Cardiac Family History: unknown heart surgery Endocrine/Metabolic: Reports: Diabetes, type II - Caffeine Use Caffeine Use: Reports: Coffee ED ROS GENERAL - Review of Systems Review Of Systems: Comprehensive ROS is negative, except as noted in HPI. ED EXAM, ANIMAL BITE - Physical Exam Exam: See Below (The dictation) Departure - Departure Time of Disposition: 14:35 Disposition: Home, Self-Care 01 Condition: Good Clinical Impression: Cellulitis - Discharge Information Referrals: PCP,None [Primary Care Provider] - Additional Instructions: The following information is given to patients seen in the emergency department who are being discharged to home. This information is to outline your options for follow-up care. We provide all patients seen in our emergency department with a follow-up referral. The need for follow-up, as well as the timing and circumstances, are variable depending upon the specifics of your emergency department visit. If you don't have a primary care physician on staff, we will provide you with a referral. We always advise you to contact your personal physician following an emergency department visit to inform them of the circumstance of the visit and for follow-up with them and/or the need for any referrals to a consulting specialist. The emergency department will also refer you to a specialist when appropriate. This referral assures that you have the opportunity for followup care with a specialist. All of these measure are taken in an effort to provide you with optimal care, which includes your followup. Under all circumstances we always encourage you to contact your private physician who remains a resource for coordinating your care. When calling for followup care, please make the office aware that this follow-up is from your recent emergency room visit. If for any reason you are refused follow-up, please contact the [facility] emergency department at and asked to speak to the emergency department charge nurse. Bactrim as prescribed follow-up primary medical doctor return as needed as discussed
== END 2019-07-11 14:46 | disposition home or self-care (01) ==
LOC: MW.ED 14:24
DX: L03.116 Cellulitis of left lower limb (principal); E66.9 Obesity, unspecified; Z68.27 Body mass index [BMI] 27.0-27.9, adult
CPT/HCPCS: 99283

== ENCOUNTER 2020-09-30 18:30 | Emergency (ER) | payer SELFPAY ==
[2020-09-30] MEDS ORDERED: Sodium Chloride 0.9% 1,000 ML IV ONE (19:12)
[2020-09-30] MEDS ORDERED: Sodium Chloride 0.9% 10 ML Syringe FLUSH PRN (19:12)
[2020-09-30] MEDS ORDERED: Sodium Chloride 0.9% 2.5 ML Syringe FLUSH PRN (19:12)
--- NOTE | 2020-09-30 19:40 | EDM.PDOC ---
ED HPI GENERAL MEDICAL PROBLEM - General Chief Complaint: Abdominal Pain Stated Complaint: RT SIDE PAIN Time Seen by Provider: 09/30/20 18:46 Source of Information: Reports: Patient History Limitations: Reports: No Limitations - History of Present Illness INITIAL COMMENTS - FREE TEXT/NARRATIVE: HISTORY AND PHYSICAL: History of present illness: Patient is a 25-year-old female presenting with right lower quadrant pain since this afternoon. Patient rates the pain 7-8/10 and describes it as achy and nonradiating; pain is made worse with putting pressure on the right leg. Patie nt denies any effective palliative measures; tried taking 3 Tylenol at 1400 today without reduction in symptoms. Patient is P:5 with last menstrual period was on August; period was heavy but this is typical for her. Patient's first menstrual period was at 11 years old. Patient's last Pap smear was in 2018 and was WNL. Patient denies any fever, chills, headache, change in vision, syncope or near syncope. Denies any chest pain, shortness of breath or cough. Denies any nausea, vomiting, diarrhea, constipation, vaginal discharge or dysuria. No concerns of STIs. Has not noted any blood in urine or stool. Patient has been eating and drinking appropriately. LBM: 0900 on 09/30/20, rated 4 on [place] stool scale. Patient's history is significant for ovarian cyst in 2018. Cyst were treated with medication and no removal occurred. Patient notes that this pain does not feel like the pain that she experienced when she had the cyst. Patient does not recall what side was affected when she had the cyst. Review of systems: As per history of present illness and below otherwise all systems reviewed and negative. Past medical history: As per history of present illness and as reviewed below otherwise noncontributory. Surgical history: As per history of present illness and as reviewed below otherwise noncontributory. Social history: See social history for further information Family history: As per history of present illness and as reviewed below otherwise noncontributory. Physical exam: General: Well developed and well nourished. Alert and orientated x 3. In no acute distress. Vital signs are stable and have been reviewed by me. Nursing notes were reviewed. Lungs: Clear to auscultation bilaterally. No wheezes, rales, or rhonchi. Chest nontender. Normal work of breathing, no accessory muscles used. Heart: S1S2, regular rate and rhythm without overt murmur, gallops, or rubs. No JVD. No peripheral edema Abdomen: Soft, nondistended, right lower quadrant pain with no rebound tenderness. Normoactive bowel sounds. Negative for masses or costovertebral tenderness. Neg for rebound tenderness. Negative psoas sign. Pelvis: Stable nontender. Genitourinary/Rectal: Deferred. Skin: Intact, warm, dry. No lesions or rashes noted. Hematologic: No petechiae or purpra. Mucosa appropriate color and normal nail bed color and refill. Psychiatric: Mood and affect are appropriate. Normal thought process. Answering questions appropriately. Notes: *This patient was seen and evaluated during the 2019 SARS-CoV-2 novel coronavirus pandemic period. Community viral transmission is ongoing at time of this encounter and the emergency department is operating under pandemic response procedures. Lab work is unremarkable. Due to the patient's continued pain I will do a CT scan to rule out appendicitis. CT shows no dilated bowel or localized inflammation. Normal appendix. She does have a right ovarian cyst/dominant follicle measuring 2.0 cm. Her pain has imp roved since fluids and Toradol. Low suspicion for torsion, no ultrasound is needed at this time. I have talked with the patient about today's findings, in addition to providing specific details for plan of care. Reassessment at the time of disposition demonstrates that the patient is in no acute distress. The patient is stable for discharge, counseling was provided and we discussed in great detail signs and symptoms that would prompt them to return to the Emergency Department. Medication, follow up and supportive care measures were reviewed and discussed. Voices understanding and is agreeable to plan of care. Denies any further questions or concerns at this time. Diagnostics: CBC, CMP, UA, HCGU, Therapeutics: IV fluid, Zofran, Toradol Prescription: Naproxyn Impression: Ovarian cyst, right Plan: 1. Your lab work is normal. CT shows a right sided ovarian cyst. 2. You can alternate Tylenol and ibuprofen as needed for pain and fever management. 3. We encourage you to follow up with your OBGYN in the next few days for re- evaluation and further care/management. 4. If your symptoms should worsen, new symptoms develop or any of the signs and symptoms we discussed should arise please return to the emergency room or call 911 (if needed). Definitive disposition and diagnosis as appropriate pending reevaluation and review of above. right lower quadrant Pain Score (Numeric/FACES): 8 - Related Data Allergies Allergy/AdvReac Type Severity Reaction Status Date / Time No Known Allergies Allergy Verified 09/30/20 18:50 Home Meds: Home Meds . 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: Musculoskeletal History: Reports: None Neurological History: Reports: None Psychiatric History: Reports: None Endocrine/Metabolic History: Reports: Obesity/BMI 30+ Hematologic History: Reports: None Immunologic History: Reports: None Oncologic (Cancer) History: Reports: None Dermatologic History: Reports: None - Infectious Disease History Infectious Disease History: Reports: None - Past Surgical History Head Surgeries/Procedures: Reports: None HEENT Surgical History: Reports: Adenoidectomy, Tonsillectomy Cardiovascular Surgical History: Reports: None GI Surgical History: Reports: None Female Surgical History: Reports: Section Other Female Surgeries/Procedures: c/section x4 Neurological Surgical History: Reports: None Musculoskeletal Surgical History: Reports: None Social & Family History - Family History Family Medical History: No Pertinent Family History Cardiac: Reports: Other (See Below) Other Cardiac Family History: unknown heart surgery Endocrine/Metabolic: Reports: Diabetes, type II - Tobacco Use Packs/Tins Daily: 0.5 - Caffeine Use Caffeine Use: Reports: None - Recreational Drug Use Recreational Drug Use: No ED ROS GENERAL - Review of Systems Review Of Systems: Comprehensive ROS is negative, except as noted in HPI. ED EXAM, GI/ABD - Physical Exam Exam: See Below (See dictation) Course - Vital Signs Last Recorded V/S: Last Vital Signs Temp 97.8 F 09/30/20 18:46 Pulse 71 09/30/20 20:02 Resp 16 09/30/20 20:02 BP 117/74 09/30/20 20:02 Pulse Ox 96 09/30/20 20:02 - Orders/Labs/Meds Orders: Active Orders 24 hr Category Date Time Status Abdomen Pelvis w Cont [CT] Stat Exams 09/30/20 20:22 Taken Sodium Chloride 0.9% [Saline Flush] Med 09/30/20 19:12 Active 10 ml FLUSH ASDIRECTED PRN Sodium Chloride 0.9% [Saline Flush] Med 09/30/20 19:12 Active 2.5 ml FLUSH ASDIRECTED PRN Saline Lock Insert [OM.PC] Stat Oth 09/30/20 19:12 Ordered Medication Orders Sodium Chloride (Saline Flush) 10 ml FLUSH ASDIRECTED PRN PRN Reason: Keep Vein Open Sodium Chloride (Saline Flush) 2.5 ml FLUSH ASDIRECTED PRN PRN Reason: Keep Vein Open Labs: Laboratory Tests 09/30/20 09/30/20 09/30/20 Range/Units 19:33 19:33 19:35 WBC 10.84 (4.0-11.0) K/uL RBC 4.47 (4.30-5.90) M/uL Hgb 13.7 (12.0-16.0) g/dL Hct 42.1 (36.0-46.0) % MCV 94.2 (80.0-98.0) fL MCH 30.6 (27.0-32.0) pg MCHC 32.5 (31.0-37.0) g/dL RDW Std Deviation 44.9 (28.0-62.0) fl RDW Coeff of Jose De Jesus 13 (11.0-15.0) % Plt Count 446 H (150-400) K/uL MPV 9.90 (7.40-12.00) fL Neut % (Auto) 56.3 (48.0-80.0) % Lymph % (Auto) 32.7 (16.0-40.0) % [place] % (Auto) 7.3 (0.0-15.0) % Eos % (Auto) 3.1 (0.0-7.0) % Baso % (Auto) 0.6 (0.0-1.5) % Neut # (Auto) 6.1 H (1.4-5.7) K/uL Lymph # (Auto) 3.6 H (0.6-2.4) K/uL [place] # (Auto) 0.8 (0.0-0.8) K/uL Eos # (Auto) 0.3 (0.0-0.7) K/uL Baso # (Auto) 0.1 (0.0-0.1) K/uL Nucleated RBC % 0.0 /100WBC Nucleated RBCs # 0 K/uL Sodium 139 (136-145) mmol/L Potassium 3.8 (3.5-5.1) mmol/L Chloride 102 (98-107) mmol/L Carbon Dioxide 30.0 (21.0-32.0) mmol/L BUN 9 (7.0-18.0) mg/dL Creatinine 0.8 (0.6-1.0) mg/dL Est Cr Clr Drug Dosing 83.54 mL/min Estimated GFR (MDRD) > 60.0 ml/min Glucose 88 (74-106) mg/dL Calcium 9.4 (8.5-10.1) mg/dL Total Bilirubin 0.2 (0.2-1.0) mg/dL AST 13 L (15-37) IU/L ALT 16 (14-63) IU/L Alkaline Phosphatase 54 (46-116) U/L Total Protein 7.5 (6.4-8.2) g/dL Albumin 4.0 (3.4-5.0) g/dL Globulin 3.5 (2.6-4.0) g/dL Albumin/Globulin Ratio 1.1 (0.9-1.6) Urine Color YELLOW Urine Appearance CLEAR Urine pH 7.0 (5.0-8.0) Ur Specific [place] 1.025 (1.001-1.035) Urine Protein NEGATIVE (NEGATIVE) mg/dL Urine Glucose (UA) NEGATIVE (NEGATIVE) mg/dL Urine Ketones NEGATIVE (NEGATIVE) mg/dL Urine Occult Blood NEGATIVE (NEGATIVE) Urine Nitrite NEGATIVE (NEGATIVE) Urine Bilirubin NEGATIVE (NEGATIVE) Urine Urobilinogen 0.2 (<2.0) EU/dL Ur Leukocyte Esterase NEGATIVE (NEGATIVE) Urine HCG, Qual (NEGATIVE) 09/30/20 Range/Units 19:35 WBC (4.0-11.0) K/uL RBC (4.30-5.90) M/uL Hgb (12.0-16.0) g/dL Hct (36.0-46.0) % MCV (80.0-98.0) fL MCH (27.0-32.0) pg MCHC (31.0-37.0) g/dL RDW Std Deviation (28.0-62.0) fl RDW Coeff of Jose De Jesus (11.0-15.0) % Plt Count (150-400) K/uL MPV (7.40-12.00) fL Neut % (Auto) (48.0-80.0) % Lymph % (Auto) (16.0-40.0) % [place] % (Auto) (0.0-15.0) % Eos % (Auto) (0.0-7.0) % Baso % (Auto) (0.0-1.5) % Neut # (Auto) (1.4-5.7) K/uL Lymph # (Auto) (0.6-2.4) K/uL [place] # (Auto) (0.0-0.8) K/uL Eos # (Auto) (0.0-0.7) K/uL Baso # (Auto) (0.0-0.1) K/uL Nucleated RBC % /100WBC Nucleated RBCs # K/uL Sodium (136-145) mmol/L Potassium (3.5-5.1) mmol/L Chloride (98-107) mmol/L Carbon Dioxide (21.0-32.0) mmol/L BUN (7.0-18.0) mg/dL Creatinine (0.6-1.0) mg/dL Est Cr Clr Drug Dosing mL/min Estimated GFR (MDRD) ml/min Glucose (74-106) mg/dL Calcium (8.5-10.1) mg/dL Total Bilirubin (0.2-1.0) mg/dL AST (15-37) IU/L ALT (14-63) IU/L Alkaline Phosphatase (46-116) U/L Total Protein (6.4-8.2) g/dL Albumin (3.4-5.0) g/dL Globulin (2.6-4.0) g/dL Albumin/Globulin Ratio (0.9-1.6) Urine Color Urine Appearance Urine pH (5.0-8.0) Ur Specific [place] (1.001-1.035) Urine Protein (NEGATIVE) mg/dL Urine Glucose (UA) (NEGATIVE) mg/dL Urine Ketones (NEGATIVE) mg/dL Urine Occult Blood (NEGATIVE) Urine Nitrite (NEGATIVE) Urine Bilirubin (NEGATIVE) Urine Urobilinogen (<2.0) EU/dL Ur Leukocyte Esterase (NEGATIVE) Urine HCG, Qual NEGATIVE (NEGATIVE) Meds: Medications Generic Name Dose Route Start Last Admin Trade Name Valeriy PRN Reason Stop Dose Admin Sodium Chloride 10 ml 09/30/20 19:12 Saline Flush FLUSH ASDIRECTED PRN Keep Vein Open Sodium Chloride 2.5 ml 09/30/20 19:12 Saline Flush FLUSH ASDIRECTED PRN Keep Vein Open Discontinued Medications Generic Name Dose Route Start Last Admin Trade Name Freq PRN Reason Stop Dose Admin Sodium Chloride 1,000 mls @ 999 mls/hr 09/30/20 19:12 09/30/20 19:36 Normal Saline IV 09/30/20 20:12 999 mls/hr STAT ONE Administration Iopamidol 100 ml 09/30/20 21:02 09/30/20 21:03 Isovue Multipack-370 (76%) IVPUSH 09/30/20 21:03 100 ml ONETIME STA Administration Ketorolac Tromethamine 30 mg 09/30/20 20:25 09/30/20 20:29 Toradol IVPUSH 09/30/20 20:26 30 mg ONETIME ONE Administration Departure - Departure Time of Disposition: 21:53 Disposition: Home, Self-Care 01 Clinical Impression: Ovarian cyst Qualifiers: Laterality: right Qualified Code(s): N83.201 - Unspecified ovarian cyst, right side - Discharge Information Instructions: Ovarian Cyst, [id number] Referrals: PCP,None [Primary Care Provider] - Forms: ED Department Discharge Additional Instructions: The following information is given to patients seen in the emergency department who are being discharged to home. This information is to outline your options for follow-up care. We provide all patients seen in our emergency department with a follow-up referral. The need for follow-up, as well as the timing and circumstances, are variable depending upon the specifics of your emergency department visit. If you don't have a primary care physician on staff, we will provide you with a referral. We always advise you to contact your personal physician following an emergency department visit to inform them of the circumstance of the visit and for follow-up with them and/or the need for any referrals to a consulting specialist. The emergency department will also refer you to a specialist when appropriate. This referral assures that you have the opportunity for follow-up care with a specialist. All of these measure are taken in an effort to provide you with optimal care, which includes your follow-up. Under all circumstances we always encourage you to contact your private physician who remains a resource for coordinating your care. When calling for follow-up care, please make the office aware that this follow-up is from your recent emergency room visit. If for any reason you are refused follow-up, please contact the [facility] Emergency Department at and asked to speak to the emergency department charge nurse. [facility] [address] [place] [id number] [id number] Thank you for choosing the [facility] emergency department in [place] for your medical needs today. It was a pleasure caring for you. Today you were seen in the emergency department for ovarian cyst/ abdominal pain. 1. Your lab work is normal. CT shows a right sided ovarian cyst. 2. You can alternate Tylenol and ibuprofen as needed for pain and fever management. 3. We encourage you to follow up with your OBGYN in the next few days for re- evaluation and further care/management. 4. If your symptoms should worsen, new symptoms develop or any of the signs and symptoms we discussed should arise please return to the emergency room or call 911 (if needed). Sepsis Event Note (ED) - Evaluation Sepsis Screening Result: No Definite Risk - Focused Exam Vital Signs: Vital Signs Temp Pulse Resp BP Pulse Ox 09/30/20 20:02 71 16 117/74 96 09/30/20 18:46 97.8 F 77 18 140/91 H 99 - My Orders Last 24 Hours: My Active Orders 09/30/20 19:12 Sodium Chloride 0.9% [Saline Flush] 10 ml FLUSH ASDIRECTED PRN Sodium Chloride 0.9% [Saline Flush] 2.5 ml FLUSH ASDIRECTED PRN Saline Lock Insert [OM.PC] Stat 09/30/20 20:22 Abdomen Pelvis w Cont [CT] Stat - Assessment/Plan Last 24 Hours: My Active Orders 09/30/20 19:12 Sodium Chloride 0.9% [Saline Flush] 10 ml FLUSH ASDIRECTED PRN Sodium Chloride 0.9% [Saline Flush] 2.5 ml FLUSH ASDIRECTED PRN Saline Lock Insert [OM.PC] Stat 09/30/20 20:22 Abdomen Pelvis w Cont [CT] Stat
[2020-09-30 20:15] LABS: BLOOD UREA NITROGEN,BUN 9 mg/dL (7.0-18.0); CHLORIDE,CL 102 mmol/L (98-107); GLUCOSE RANDOM 88 mg/dL (74-106); POTASSIUM,K 3.8 mmol/L (3.5-5.1); SODIUM,NA 139 mmol/L (136-145)
[2020-09-30] MEDS ORDERED: Ketorolac 30 MG/ML SDV IVPUSH ONE (20:25)
[2020-09-30] MEDS ORDERED: Iopamidol 755 MG/ML 500 ML Multipack Bottle IVPUSH STA (21:02)
--- NOTE | 2020-09-30 21:49 | CT ---
INDICATION: Right lower quadrant pain TECHNIQUE: Axial images were obtained from the diaphragm to the pubic symphysis. Reformats were obtained in the coronal and sagittal plane. IV Contrast: 100 cc Isovue 370 Oral Contrast: None COMPARISON: None. FINDINGS: Lower chest: Unremarkable. Liver: Normal in contour with focal fat adjacent to the falciform ligament. Gallbladder and bile ducts: Contracted gallbladder. Spleen: Unremarkable. Normal in size without mass. Pancreas: Unremarkable. No mass or inflammation. Adrenal glands: Unremarkable. No nodules. Kidneys: Unremarkable. No masses, stones, or hydronephrosis. Vasculature: Unremarkable. GI tract: No dilated loops of large or small intestine. The appendix is seen and is normal. Pelvis: Bladder unremarkable. Uterus anteverted. Right ovarian cyst/dominant follicle measuring 2.0 centimeters. Bones: Unremarkable for age. IMPRESSION: 1. No dilated bowel or localized inflammation. Normal appendix. 2. Right ovarian cyst/dominant follicle measuring 2.0 centimeters. Please note that all CT scans at this facility use dose modulation, iterative reconstruction, and/or weight-based dosing when appropriate to reduce radiation dose to as low as reasonably achievable. Dictated by Jorge Viveros MD @ Sep 30 2020 9:35PM Signed by Dr. Jorge Viveros @ Sep 30 2020 9:49PM
[2020-10-01 01:05] VITALS: BP 107/71; PULSE 67
== END 2020-09-30 22:10 | disposition home or self-care (01) ==
LOC: MW.ED 18:30
DX: N83.201 Unspecified ovarian cyst, right side (principal); Z72.0 Tobacco use; E66.9 Obesity, unspecified; Z68.26 Body mass index [BMI] 26.0-26.9, adult
CPT/HCPCS: 36415; 74177; 80053; 81003; 81025; 85025; 96374; 99284; J1885; J7030; Q9967; 99283

== ENCOUNTER 2021-04-15 16:00 | Emergency (ER) | payer SELFPAY ==
--- NOTE | 2021-04-15 17:05 | EDM.PDOC ---
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 Patient states that she took a test and was positive. Her last was last month she is unsure far along she is. She has no abdominal cramps no fever chills weakness or lightheadedness. Patient has 5 pregnancies in the past 5 living children. - Related Data Allergies Allergy/AdvReac Type Severity Reaction Status Date / Time No Known Allergies Allergy Verified 04/15/21 16:37 Home Meds: Home Meds . 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: Musculoskeletal History: Reports: None Neurological History: Reports: None Psychiatric History: Reports: None Endocrine/Metabolic History: Reports: Obesity/BMI 30+ Hematologic History: Reports: None Immunologic History: Reports: None Oncologic (Cancer) History: Reports: None Dermatologic History: Reports: None - Infectious Disease History Infectious Disease History: Reports: None - Past Surgical History Head Surgeries/Procedures: Reports: None HEENT Surgical History: Reports: Adenoidectomy, Tonsillectomy Cardiovascular Surgical History: Reports: None GI Surgical History: Reports: None Female Surgical History: Reports: Section Other Female Surgeries/Procedures: c/section x4 Neurological Surgical History: Reports: None Musculoskeletal Surgical History: Reports: None Social & Family History - Family History Family Medical History: No Pertinent Family History Cardiac: Reports: Other (See Below) Other Cardiac Family History: unknown heart surgery Endocrine/Metabolic: Reports: Diabetes, type II - Tobacco Use Tobacco Use Status *Q: Never Tobacco User - Caffeine Use Caffeine Use: Reports: None - Recreational Drug Use Recreational Drug Use: No ED ROS GENERAL - Review of Systems Review Of Systems: See Below Constitutional: Reports: No Symptoms HEENT: Reports: No Symptoms Respiratory: Reports: No Symptoms Cardiovascular: Reports: No Symptoms Endocrine: Reports: No Symptoms GI/Abdominal: Reports: No Symptoms : Reports: Irregular Menses Musculoskeletal: Reports: No Symptoms Skin: Reports: No Symptoms Neurological: Reports: No Symptoms Psychiatric: Reports: No Symptoms Hematologic/Lymphatic: Reports: No Symptoms Immunologic: Reports: No Symptoms ED EXAM - Physical Exam Exam: See Below Exam Limited By: No Limitations General Appearance: Alert, WD/WN, No Apparent Distress Eye Exam: Bilateral Eye: EOMI, PERRL Respiratory/Chest: No Respiratory Distress, Lungs Clear, Normal Breath Sounds Cardiovascular: Normal Peripheral Pulses, Regular Rate, Rhythm GI/Abdominal Exam: Normal Bowel Sounds, Soft, Non-Tender Extremities: Normal Inspection Neurological: Alert, Oriented, CN II-XII Intact, Normal Cognition, Normal Gait Course - Vital Signs Last Recorded V/S: Last Vital Signs Temp 97.9 F 04/15/21 16:38 Pulse 85 04/15/21 18:22 Resp 15 04/15/21 16:38 BP 112/67 04/15/21 18:22 Pulse Ox 98 04/15/21 18:22 - Orders/Labs/Meds Labs: Laboratory Tests 04/15/21 04/15/21 04/15/21 Range/Units 16:34 16:34 17:24 WBC 7.88 (4.0-11.0) K/uL RBC 4.49 (4.30-5.90) M/uL Hgb 13.4 (12.0-16.0) g/dL Hct 39.6 (36.0-46.0) % MCV 88.2 (80.0-98.0) fL MCH 29.8 (27.0-32.0) pg MCHC 33.8 (31.0-37.0) g/dL RDW Std Deviation 40.3 (28.0-62.0) fl RDW Coeff of Jose De Jesus 13 (11.0-15.0) % Plt Count 340 (150-400) K/uL MPV 9.50 (7.40-12.00) fL Neut % (Auto) 59.4 (48.0-80.0) % Lymph % (Auto) 27.8 (16.0-40.0) % Sharkey % (Auto) 9.5 (0.0-15.0) % Eos % (Auto) 2.8 (0.0-7.0) % Baso % (Auto) 0.5 (0.0-1.5) % Neut # (Auto) 4.7 (1.4-5.7) K/uL Lymph # (Auto) 2.2 (0.6-2.4) K/uL Sharkey # (Auto) 0.8 (0.0-0.8) K/uL Eos # (Auto) 0.2 (0.0-0.7) K/uL Baso # (Auto) 0.0 (0.0-0.1) K/uL Nucleated RBC % 0.0 /100WBC Nucleated RBCs # 0 K/uL Sodium (136-145) mmol/L Potassium (3.5-5.1) mmol/L Chloride (98-107) mmol/L Carbon Dioxide (21.0-32.0) mmol/L BUN (7.0-18.0) mg/dL Creatinine (0.6-1.0) mg/dL Est Cr Clr Drug Dosing mL/min Estimated GFR (MDRD) ml/min Glucose (74-106) mg/dL Calcium (8.5-10.1) mg/dL Phosphorus (2.6-4.7) mg/dL Magnesium (1.8-2.4) mg/dL Total Bilirubin (0.2-1.0) mg/dL AST (15-37) IU/L ALT (14-63) IU/L Alkaline Phosphatase (46-116) U/L Total Protein (6.4-8.2) g/dL Albumin (3.4-5.0) g/dL Globulin (2.6-4.0) g/dL Albumin/Globulin Ratio (0.9-1.6) HCG, Quant mIU/mL Urine Color YELLOW Urine Appearance CLEAR Urine pH 6.0 (5.0-8.0) Ur Specific [place] <= 1.005 (1.001-1.035) Urine Protein NEGATIVE (NEGATIVE) mg/dL Urine Glucose (UA) NEGATIVE (NEGATIVE) mg/dL Urine Ketones NEGATIVE (NEGATIVE) mg/dL Urine Occult Blood NEGATIVE (NEGATIVE) Urine Nitrite NEGATIVE (NEGATIVE) Urine Bilirubin NEGATIVE (NEGATIVE) Urine Urobilinogen 0.2 (<2.0) EU/dL Ur Leukocyte Esterase NEGATIVE (NEGATIVE) Urine HCG, Qual POSITIVE (NEGATIVE) 08/27/21 Range/Units 17:24 WBC (4.0-11.0) K/uL RBC (4.30-5.90) M/uL Hgb (12.0-16.0) g/dL Hct (36.0-46.0) % MCV (80.0-98.0) fL MCH (27.0-32.0) pg MCHC (31.0-37.0) g/dL RDW Std Deviation (28.0-62.0) fl RDW Coeff of Jose De Jesus (11.0-15.0) % Plt Count (150-400) K/uL MPV (7.40-12.00) fL Neut % (Auto) (48.0-80.0) % Lymph % (Auto) (16.0-40.0) % Sharkey % (Auto) (0.0-15.0) % Eos % (Auto) (0.0-7.0) % Baso % (Auto) (0.0-1.5) % Neut # (Auto) (1.4-5.7) K/uL Lymph # (Auto) (0.6-2.4) K/uL Sharkey # (Auto) (0.0-0.8) K/uL Eos # (Auto) (0.0-0.7) K/uL Baso # (Auto) (0.0-0.1) K/uL Nucleated RBC % /100WBC Nucleated RBCs # K/uL Sodium 137 (136-145) mmol/L Potassium 3.4 L (3.5-5.1) mmol/L Chloride 103 (98-107) mmol/L Carbon Dioxide 24.0 (21.0-32.0) mmol/L BUN 6 L (7.0-18.0) mg/dL Creatinine 0.6 (0.6-1.0) mg/dL Est Cr Clr Drug Dosing 111.39 mL/min Estimated GFR (MDRD) > 60.0 ml/min Glucose 73 L (74-106) mg/dL Calcium 8.5 (8.5-10.1) mg/dL Phosphorus 3.0 (2.6-4.7) mg/dL Magnesium 2.0 (1.8-2.4) mg/dL Total Bilirubin 0.3 (0.2-1.0) mg/dL AST 12 L (15-37) IU/L ALT 15 (14-63) IU/L Alkaline Phosphatase 53 (46-116) U/L Total Protein 7.4 (6.4-8.2) g/dL Albumin 4.2 (3.4-5.0) g/dL Globulin 3.2 (2.6-4.0) g/dL Albumin/Globulin Ratio 1.3 (0.9-1.6) HCG, Quant 449.0 mIU/mL Urine Color Urine Appearance Urine pH (5.0-8.0) Ur Specific [place] (1.001-1.035) Urine Protein (NEGATIVE) mg/dL Urine Glucose (UA) (NEGATIVE) mg/dL Urine Ketones (NEGATIVE) mg/dL Urine Occult Blood (NEGATIVE) Urine Nitrite (NEGATIVE) Urine Bilirubin (NEGATIVE) Urine Urobilinogen (<2.0) EU/dL Ur Leukocyte Esterase (NEGATIVE) Urine HCG, Qual (NEGATIVE) - Re-Assessments/Exams Free Text/Narrative Re-Assessment/Exam: 04/15/21 19:02 Patient pain is only 449. Patient ultrasound not show an IUP could be a fill recommend patient will follow with [facility] next week for repeat ultrasound and beta. Departure - Departure Time of Disposition: 19:02 Disposition: Home, Self-Care 01 Condition: Good Clinical Impression: Hemorrhage, , early - Discharge Information *PRESCRIPTION DRUG MONITORING PROGRAM REVIEWED*: Not Applicable *COPY OF PRESCRIPTION DRUG MONITORING REPORT IN PATIENT MARISA: Not Applicable Referrals: PCP,None [Primary Care Provider] - Forms: ED Department Discharge Additional Instructions: The following information is given to patients seen in the emergency department who are being discharged to home. This information is to outline your options for follow-up care. We provide all patients seen in our emergency department with a follow-up referral. The need for follow-up, as well as the timing and circumstances, are variable depending upon the specifics of your emergency department visit. If you don't have a primary care physician on staff, we will provide you with a referral. We always advise you to contact your personal physician following an emergency department visit to inform them of the circumstance of the visit and for follow-up with them and/or the need for any referrals to a consulting specialist. The emergency department will also refer you to a specialist when appropriate. This referral assures that you have the opportunity for follow-up care with a specialist. All of these measure are taken in an effort to provide you with optimal care, which includes your follow-up. Under all circumstances we always encourage you to contact your private physician who remains a resource for coordinating your care. When calling for follow-up care, please make the office aware that this follow-up is from your recent emergency room visit. If for any reason you are refused follow-up, please contact the [facility] Emergency Department at and asked to speak to the emergency department charge nurse. Please follow up with your primary care physician. If you do not have a primary care physician, see below: [facility] [address] [place] [id number] [facility] [address] [place] [id number] You are seen today for vaginal bleeding in . We did ultrasound and did not show the fetus in the correct spot this could be because is too early to see any may be too little or could be a failed but we recommend you follow-up with your [facility] doctor for repeat ultrasound and have your beta hCG redrawn. If you develop any abdominal cramps or symptom please return to the ED. Sepsis Event Note (ED) - Evaluation Sepsis Screening Result: No Definite Risk - Focused Exam Vital Signs: Vital Signs Temp Pulse Resp BP Pulse Ox 04/15/21 18:22 85 112/67 98 04/15/21 16:38 97.9 F 87 15 122/79 97 - Assessment/Plan Plan: Patient a 25-year-old female presents today for vaginal bleeding. Patient believes that she is she took 1 at home. We will confirm do a pelvic exam and sent ultrasound.
[2021-04-15 18:12] LABS: BLOOD UREA NITROGEN,BUN 6 mg/dL (7.0-18.0); CHLORIDE,CL 103 mmol/L (98-107); GLUCOSE RANDOM 73 mg/dL (74-106); POTASSIUM,K 3.4 mmol/L (3.5-5.1); SODIUM,NA 137 mmol/L (136-145)
--- NOTE | 2021-04-15 18:58 | US ---
INDICATION: Vaginal bleeding in early , gestational age by LMP is 5 weeks 1 day, hCG is 449 TECHNIQUE: Ultrasound OB pelvis transvaginal. Real-time damon-scale imaging of the pelvis was performed. COMPARISON: None FINDINGS: Sonographic imaging demonstrates a single intrauterine gestation. There is an irregularly-shaped focus of increased density within the gestational sac measuring 8.9 mm in length. This does not resemble a pole. No cardiac activity identified. The gestational sac is irregularly-shaped. No yolk sac identified. The ovaries are of normal size. Free fluid in the bilateral adnexa. IMPRESSION: Irregular gestational sac containing a focus of increased density which does not resemble a pole. No cardiac activity identified. No yolk sac identified. Findings are highly concerning for failure. Recommend follow-up ultrasound in 1 week and/or OB consultation. A small amount of free fluid in the bilateral adnexa. Dictated by Sienna Busby MD @ 04/15/2021 6:56:[address] Sienna Busby @ Apr 15 2021 6:56PM
[2021-04-15 19:18] VITALS: BP 115/78; PULSE 74
== END 2021-04-15 19:15 | disposition home or self-care (01) ==
LOC: MW.ED 16:00
DX: O20.9 Hemorrhage in early pregnancy, unspecified (principal); O99.211 Obesity complicating pregnancy, first trimester; Z3A.01 Less than 8 weeks gestation of pregnancy
CPT/HCPCS: 36415; 76801; 76801-26; 80053; 81003; 81025; 83735; 84100; 84702; 85025; 99284-25

== ENCOUNTER 2021-12-16 05:07 | Inpatient (IN) | payer MEDICAID ==
[2021-12-16] MEDS ORDERED: Sodium Chloride 0.9% 10 ML Syringe FLUSH PRN (05:14)
[2021-12-16] MEDS ORDERED: Sodium Chloride 0.9% 20 ML SDV IV PRN (05:14)
[2021-12-16] MEDS ORDERED: Citric Acid/Sodium Citrate Solution 30 ML Cup PO ONE (05:14)
[2021-12-16] MEDS ORDERED: ceFAZolin 2 GM in Premix Bag 1 BAG IV ONE (05:14)
[2021-12-16] MEDS ORDERED: Sodium Chloride 0.9% 2.5 ML Syringe FLUSH PRN (05:14)
[2021-12-16] MEDS ORDERED: Oxytocin/0.9 % Sodium Chloride 30 UNIT/500 ML BAG IV SCH (05:15)
[2021-12-16] MEDS: Lactated Ringers 1,000 ML IV SCH ×2 (05:40→07:26)
[2021-12-16] MEDS ORDERED: Dexmedetomidine 200 MCG/2 ML SDV ONE (07:26)
[2021-12-16] MEDS ORDERED: Oxytocin 10 Units/1 ML SDV ONE (07:26)
[2021-12-16] MEDS ORDERED: Ondansetron 4 MG/2 ML SDV ONE (07:26)
[2021-12-16] MEDS ORDERED: ceFAZolin 1 GM Vial ONE (07:27)
[2021-12-16] MEDS ORDERED: Morphine PF 10 MG/10 ML SDV ONE (07:27)
[2021-12-16] MEDS ORDERED: Water For Injection, Sterile 20 ML ONE (07:27)
[2021-12-16] MEDS ORDERED: Octyl 2-Cyanoacrylate 1 Tube ONE (07:33)
[2021-12-16] MEDS ORDERED: diphenhydrAMINE 50 MG/ML SDV IVPUSH PRN ×2 (07:51→09:23)
[2021-12-16] MEDS ORDERED: Metoclopramide 10 MG/2 ML SDV IVPUSH PRN (07:51)
[2021-12-16] MEDS ORDERED: Ondansetron 4 MG/2 ML SDV IVPUSH PRN ×2 (07:51→09:23)
[2021-12-16] MEDS ORDERED: fentaNYL 100 MCG/2 ML SDV IVPUSH PRN ×2 (07:51)
[2021-12-16] MEDS ORDERED: Albuterol 0.083% 2.5 MG/3 ML Neb Soln NEB PRN (07:51)
[2021-12-16] MEDS ORDERED: Naloxone 0.4 MG/ML SDV IVPUSH PRN ×2 (07:51)
[2021-12-16] MEDS ORDERED: Nalbuphine HCl 10 MG/ 1ML Amp IVPUSH PRN (07:52)
[2021-12-16] MEDS ORDERED: Dexamethasone 4 MG/ML 5 ML MDV ONE (08:17)
[2021-12-16] MEDS ORDERED: Bupivacaine 0.25% 30 ML SDV ONE (09:14)
[2021-12-16] MEDS ORDERED: Bisacodyl 10 MG Supp RECTAL PRN (09:23)
[2021-12-16] MEDS ORDERED: Methylergonovine 0.2 MG/1 ML Amp IM PRN (09:23)
[2021-12-16] MEDS ORDERED: Acetaminophen/oxyCODONE 325-5 MG Tab PO PRN (09:23)
[2021-12-16] MEDS ORDERED: Tranexamic Acid 1,000 MG in Sodium Chloride 0.9% 100 ML IV PRN (09:23)
[2021-12-16] MEDS ORDERED: Oxytocin 10 Units/1 ML SDV IM PRN (09:23)
[2021-12-16] MEDS ORDERED: Misoprostol 200 MCG Tab RECTAL PRN (09:23)
[2021-12-16] MEDS ORDERED: Lanolin 100% Cream 7 GM Tube TOP PRN (09:23)
[2021-12-16] MEDS ORDERED: Lactated Ringers 1,000 ML IV SCH (09:30)
[2021-12-16] MEDS ORDERED: Ketorolac 30 MG/ML SDV IVPUSH SCH (09:30)
[2021-12-16] MEDS: Ketorolac 30 MG/ML SDV IVPUSH SCH ×2 (15:31→21:34)
[2021-12-16] MEDS: Docusate Sodium 100 MG Cap PO SCH (21:34)
[2021-12-17] MEDS: Ketorolac 30 MG/ML SDV IVPUSH SCH ×2 (03:40→09:33)
[2021-12-17] MEDS: Docusate Sodium 100 MG Cap PO SCH ×2 (09:32→21:15)
[2021-12-17] MEDS: Acetaminophen/oxyCODONE 325-5 MG Tab PO PRN ×3 (13:10→21:15)
[2021-12-17] MEDS: Ibuprofen 800 MG Tab PO PRN (16:49)
[2021-12-18] MEDS: Ibuprofen 800 MG Tab PO PRN ×2 (02:27→11:19)
[2021-12-18] MEDS: Acetaminophen/oxyCODONE 325-5 MG Tab PO PRN ×2 (02:31→07:53)
[2021-12-18 07:57] VITALS: BP 105/64; PULSE 76
== END 2021-12-18 12:05 | disposition home or self-care (01) | DRG 787 ==
LOC: MW.OB 05:07
PROVIDERS: ADMIT Obstetrics & Gynecology; ATTEND Obstetrics & Gynecology
PROC: 10D00Z1 Extraction of Products of Conception, Low, Open Approach (ICD-10-PCS; principal; 2021-12-16)
PROC: 0TQB0ZZ Repair Bladder, Open Approach (ICD-10-PCS; 2021-12-16)
DX: O34.211 Maternal care for low transverse scar from previous cesarean delivery (principal); O98.32 Other infections with a predominantly sexual mode of transmission complicating childbirth; O71.5 Other obstetric injury to pelvic organs; A60.09 Herpesviral infection of other urogenital tract; Z37.0 Single live birth; O99.334 Smoking (tobacco) complicating childbirth; F17.210 Nicotine dependence, cigarettes, uncomplicated; Z3A.39 39 weeks gestation of pregnancy; Z20.822 Contact with and (suspected) exposure to COVID-19
CPT/HCPCS: 01961; 36415; 59025; 64488; 82803; 85014; 85018; 85027; 86592; 86850; 86900; 86901; A9270-GY; J0690; J1100; J1200; J1885; J2274; J2370; J2405; J2590; J3490; J7120; U0002

== ENCOUNTER 2023-08-25 16:40 | Emergency (ER) | payer MEDICAID ==
[2023-08-25 17:22] LABS: BILIRUBIN,URINE NEGATIVE (NEGATIVE); COLOR,URINE YELLOW; GLUCOSE,URINE NEGATIVE (NEGATIVE); KETONES,URINE NEGATIVE (NEGATIVE); LEUKOCYTE ESTERASE,URINE TRACE (NEGATIVE); NITRITE,URINE NEGATIVE (NEGATIVE); OCCULT BLOOD,URINE SMALL (NEGATIVE); PH,URINE 7.5 (5.0-8.0); PROTEIN,URINE NEGATIVE (NEGATIVE); UROBILINOGEN,URINE 0.2 EU/dL (<2.0)
[2023-08-25 17:26] VITALS: BP 111/66; PULSE 92
[2023-08-25 17:28] LABS: APPEARANCE,URINE HAZY
[2023-08-25 17:41] LABS: BACTERIA,URINE FEW (NEGATIVE); MUCUS,URINE LIGHT (NONE-MOD); RBC,URINE 0-2 (0-2/HPF); SQUAMOUS EPITHELIAL CELLS,UR FEW
== END 2023-08-25 18:50 | disposition left against medical advice (07) ==
LOC: MW.ED 16:40
DX: Z53.21 Procedure and treatment not carried out due to patient leaving prior to being seen by health care provider (principal)
CPT/HCPCS: 76801; 76801-26; 81001; 81025; 87086

== ENCOUNTER 2023-12-02 12:12 | Emergency (ER) | payer BC ==
[2023-12-02] MEDS: Albuterol/Ipratropium 3.0-0.5 MG/3 ML Neb Soln NEB ONE (13:16)
[2023-12-02 13:18] LABS: BASOPHILS ABSOLUTE AUTO 0.04 K/uL (0.00-0.20); BASOPHILS PERCENT AUTO 0.3 % (0.0-1.0); EOSINOPHILS ABSOLUTE AUTO 0.28 K/uL (0.00-0.45); EOSINOPHILS PERCENT AUTO 2.3 % (0.0-6.0); HEMATOCRIT 33.7 % (37.0-47.0); HEMOGLOBIN 11.3 g/dL (12.0-16.0); IMMATURE GRAN ABSOLUTE AUTO 0.05 K/uL (0.00-0.05); IMMATURE GRAN PERCENT AUTO 0.4 % (0.0-0.4); LYMPHOCYTES ABSOLUTE AUTO 1.89 K/uL (1.00-4.80); LYMPHOCYTES PERCENT AUTO 15.8 % (24.0-44.0); MEAN CORPUSCULAR HEMOGLOBIN 27.8 pg (28.0-32.0); MEAN CORPUSCULAR HGB CONC 33.5 g/dL (32.0-36.0); MEAN CORPUSCULAR VOLUME 82.8 fL (83.0-99.0); MEAN PLATELET VOLUME 9.1 fL (9.4-12.3); MONOCYTES ABSOLUTE AUTO 0.66 K/uL (0.00-0.80); MONOCYTES PERCENT AUTO 5.5 % (0.0-8.0); NEUTROPHILS ABSOLUTE AUTO 9.04 K/uL (1.80-7.70); NEUTROPHILS PERCENT AUTO 75.7 % (41.0-71.0); PLATELET COUNT,PLT 352 K/uL (150-400); RED BLOOD CELL COUNT 4.07 M/uL (4.10-5.30); WHITE BLOOD CELL COUNT,WBC 11.96 K/uL (3.9-11.3)
[2023-12-02 13:39] LABS: A/G RATIO 0.7 (0.9-1.6); ALANINE AMINOTRANSFERASE,ALT 12 IU/L (14-63); ALKALINE PHOSPHATASE 75 U/L (46-116); ASPARTATE AMNIOTRANSFERASE,AST 11 IU/L (15-37); BILIRUBIN TOTAL 0.2 mg/dL (0.2-1.0); BLOOD UREA NITROGEN,BUN 4 mg/dL (7.0-18.0); CALCIUM 8.9 mg/dL (8.5-10.1); CARBON DIOXIDE,CO2 22.5 mmol/L (21.0-32.0); CHLORIDE,CL 102 mmol/L (98-107); CREATININE 0.5 mg/dL (0.6-1.0); EST CRCL DRUG DOSING (CG) 136.09 mL/min; GLUCOSE RANDOM 85 mg/dL (74-106); POTASSIUM,K 3.4 mmol/L (3.5-5.1); PROTEIN TOTAL,TP 7.2 g/dL (6.4-8.2); SODIUM,NA 137 mmol/L (136-145)
[2023-12-02 13:42] LABS: ESTIMATED GFR 129 mL/min (>60)
[2023-12-02] MEDS: Albuterol 8 GM Inhaler INH ONE (13:54)
[2023-12-02] MEDS: Amoxicillin/Clavulanate K 875-125 MG Tab PO ONE (13:54)
[2023-12-02 13:59] VITALS: BP 137/98; PULSE 90
[2023-12-02 13:59] LABS: CORONAVIRUS COVID-19 NAA NEGATIVE (NEGATIVE); INFLUENZA A NAA NEGATIVE (NEGATIVE); INFLUENZA B NAA NEGATIVE (NEGATIVE)
== END 2023-12-02 14:12 | disposition home or self-care (01) ==
LOC: MW.ED 12:12
DX: J06.9 Acute upper respiratory infection, unspecified (principal); Z75.8 Other problems related to medical facilities and other health care; Z79.51 Long term (current) use of inhaled steroids; Z79.899 Other long term (current) drug therapy
CPT/HCPCS: 0240U; 36415; 80053; 84484; 85025; 93005; 94640; 99285; A9270; 93010; 99283; J7620-GY

== ENCOUNTER 2023-12-05 09:24 | Inpatient (IN) | payer BC, MEDICAID ==
[2023-12-05] MEDS: Albuterol/Ipratropium 3.0-0.5 MG/3 ML Neb Soln NEB STA (09:58)
[2023-12-05] MEDS: Albuterol/Ipratropium 3.0-0.5 MG/3 ML Neb Soln ONE (09:58)
[2023-12-05] MEDS: Sodium Chloride 0.9% 2.5 ML Syringe FLUSH PRN (10:23)
[2023-12-05] MEDS: Sodium Chloride 0.9% 10 ML Syringe FLUSH PRN (10:24)
[2023-12-05 10:29] LABS: BASOPHILS ABSOLUTE AUTO 0.03 K/uL (0.00-0.20); BASOPHILS PERCENT AUTO 0.3 % (0.0-1.0); EOSINOPHILS ABSOLUTE AUTO 0.22 K/uL (0.00-0.45); EOSINOPHILS PERCENT AUTO 2.3 % (0.0-6.0); HEMATOCRIT 35.9 % (37.0-47.0); HEMOGLOBIN 11.7 g/dL (12.0-16.0); IMMATURE GRAN ABSOLUTE AUTO 0.03 K/uL (0.00-0.05); IMMATURE GRAN PERCENT AUTO 0.3 % (0.0-0.4); LYMPHOCYTES ABSOLUTE AUTO 1.72 K/uL (1.00-4.80); LYMPHOCYTES PERCENT AUTO 17.9 % (24.0-44.0); MEAN CORPUSCULAR HEMOGLOBIN 27.1 pg (28.0-32.0); MEAN CORPUSCULAR HGB CONC 32.6 g/dL (32.0-36.0); MEAN CORPUSCULAR VOLUME 83.1 fL (83.0-99.0); MEAN PLATELET VOLUME 9.3 fL (9.4-12.3); MONOCYTES ABSOLUTE AUTO 0.68 K/uL (0.00-0.80); MONOCYTES PERCENT AUTO 7.1 % (0.0-8.0); NEUTROPHILS ABSOLUTE AUTO 6.91 K/uL (1.80-7.70); NEUTROPHILS PERCENT AUTO 72.1 % (41.0-71.0); PLATELET COUNT,PLT 334 K/uL (150-400); RED BLOOD CELL COUNT 4.32 M/uL (4.10-5.30); WHITE BLOOD CELL COUNT,WBC 9.59 K/uL (3.9-11.3)
[2023-12-05 11:03] LABS: A/G RATIO 0.7 (0.9-1.6); ALBUMIN 3.1 g/dL (3.4-5.0); BILIRUBIN TOTAL 0.8 mg/dL (0.2-1.0); CARBON DIOXIDE,CO2 24.3 mmol/L (21.0-32.0); CREATININE 0.7 mg/dL (0.6-1.0); EST CRCL DRUG DOSING (CG) 97.21 mL/min; POTASSIUM,K 3.3 mmol/L (3.5-5.1); PROTEIN TOTAL,TP 7.7 g/dL (6.4-8.2)
[2023-12-05 12:05] LABS: CORONAVIRUS COVID-19 NAA NEGATIVE (NEGATIVE); INFLUENZA A NAA NEGATIVE (NEGATIVE); INFLUENZA B NAA NEGATIVE (NEGATIVE); RESPIRATORY SYNCYTIAL VIR NAA NEGATIVE (NEGATIVE)
[2023-12-05] MEDS ORDERED: Azithromycin 500 MG in Sodium Chloride 0.9% 250 ML IV ONE (12:28)
[2023-12-05] MEDS: Sodium Chloride 0.9% 1,000 ML IV ONE (12:41)
[2023-12-05] MEDS: Levofloxacin/Dextrose 5%-Water 750 MG in Premix Bag 1 BAG IV ONE (12:48)
[2023-12-05] MEDS: cefTRIAXone 1 GM in Sodium Chloride 0.9% 50 ML IV ONE (12:53)
[2023-12-05 13:29] LABS: LACTIC ACID 1.1 mmol/L (0.4-2.0)
[2023-12-05] MEDS ORDERED: Polyethylene Glycol 3350 Powder 17 GM Packet PO PRN (13:38)
[2023-12-05] MEDS: Azithromycin 500 MG in Sodium Chloride 0.9% 250 ML IV ONE (14:45)
[2023-12-05] MEDS: Vitamin B6-pyridOXINE 50 MG Tab PO ONE (15:54)
[2023-12-05] MEDS: Albuterol/Ipratropium 3.0-0.5 MG/3 ML Neb Soln NEB PRN (17:10)
[2023-12-05] MEDS: Metoclopramide 10 MG/2 ML SDV IVPUSH ONE (17:20)
[2023-12-06 06:10] LABS: BASOPHILS ABSOLUTE AUTO 0.04 K/uL (0.00-0.20); BASOPHILS PERCENT AUTO 0.5 % (0.0-1.0); HEMATOCRIT 29.2 % (37.0-47.0); HEMOGLOBIN 9.5 g/dL (12.0-16.0); IMMATURE GRAN ABSOLUTE AUTO 0.04 K/uL (0.00-0.05); IMMATURE GRAN PERCENT AUTO 0.5 % (0.0-0.4); LYMPHOCYTES ABSOLUTE AUTO 2.01 K/uL (1.00-4.80); MEAN CORPUSCULAR HEMOGLOBIN 27.4 pg (28.0-32.0); MEAN CORPUSCULAR HGB CONC 32.5 g/dL (32.0-36.0); MEAN CORPUSCULAR VOLUME 84.1 fL (83.0-99.0); MEAN PLATELET VOLUME 9.4 fL (9.4-12.3); MONOCYTES ABSOLUTE AUTO 0.61 K/uL (0.00-0.80); MONOCYTES PERCENT AUTO 7.6 % (0.0-8.0); NEUTROPHILS ABSOLUTE AUTO 4.93 K/uL (1.80-7.70); NEUTROPHILS PERCENT AUTO 61.4 % (41.0-71.0); PLATELET COUNT,PLT 297 K/uL (150-400); RED BLOOD CELL COUNT 3.47 M/uL (4.10-5.30); WHITE BLOOD CELL COUNT,WBC 8.03 K/uL (3.9-11.3)
[2023-12-06 06:31] LABS: A/G RATIO 0.6 (0.9-1.6); ALBUMIN 2.4 g/dL (3.4-5.0); BILIRUBIN TOTAL 0.3 mg/dL (0.2-1.0); CALCIUM 8.1 mg/dL (8.5-10.1); CARBON DIOXIDE,CO2 19.7 mmol/L (21.0-32.0); CREATININE 0.5 mg/dL (0.6-1.0); EST CRCL DRUG DOSING (CG) 136.09 mL/min; POTASSIUM,K 3.1 mmol/L (3.5-5.1); PROTEIN TOTAL,TP 6.2 g/dL (6.4-8.2)
[2023-12-06] MEDS: Acetaminophen 325 MG Tab PO PRN (08:53)
[2023-12-06] MEDS: Potassium Chloride 20 MEQ Tab.ER PO ONE (08:54)
[2023-12-06] MEDS: cefTRIAXone 1 GM in Sodium Chloride 0.9% 50 ML IV SCH (12:41)
[2023-12-06] MEDS: Ondansetron 4 MG Tab PO PRN (13:43)
[2023-12-06] MEDS: Azithromycin 500 MG in Sodium Chloride 0.9% 250 ML IV SCH (13:44)
[2023-12-06] MEDS: Doxylamine Succinate 25 MG Tab PO PRN (21:49)
[2023-12-07 06:40] LABS: BASOPHILS ABSOLUTE AUTO 0.04 K/uL (0.00-0.20); BASOPHILS PERCENT AUTO 0.5 % (0.0-1.0); EOSINOPHILS ABSOLUTE AUTO 0.47 K/uL (0.00-0.45); EOSINOPHILS PERCENT AUTO 5.8 % (0.0-6.0); HEMATOCRIT 30.5 % (37.0-47.0); IMMATURE GRAN ABSOLUTE AUTO 0.05 K/uL (0.00-0.05); IMMATURE GRAN PERCENT AUTO 0.6 % (0.0-0.4); LYMPHOCYTES ABSOLUTE AUTO 1.98 K/uL (1.00-4.80); LYMPHOCYTES PERCENT AUTO 24.2 % (24.0-44.0); MEAN CORPUSCULAR HEMOGLOBIN 28.3 pg (28.0-32.0); MEAN CORPUSCULAR HGB CONC 32.8 g/dL (32.0-36.0); MEAN CORPUSCULAR VOLUME 86.4 fL (83.0-99.0); MEAN PLATELET VOLUME 9.8 fL (9.4-12.3); MONOCYTES ABSOLUTE AUTO 0.68 K/uL (0.00-0.80); MONOCYTES PERCENT AUTO 8.3 % (0.0-8.0); NEUTROPHILS ABSOLUTE AUTO 4.95 K/uL (1.80-7.70); NEUTROPHILS PERCENT AUTO 60.6 % (41.0-71.0); PLATELET COUNT,PLT 297 K/uL (150-400); RED BLOOD CELL COUNT 3.53 M/uL (4.10-5.30); WHITE BLOOD CELL COUNT,WBC 8.17 K/uL (3.9-11.3)
[2023-12-07 07:02] LABS: A/G RATIO 0.7 (0.9-1.6); ALBUMIN 2.5 g/dL (3.4-5.0); BILIRUBIN TOTAL 0.2 mg/dL (0.2-1.0); CALCIUM 8.5 mg/dL (8.5-10.1); CARBON DIOXIDE,CO2 20.1 mmol/L (21.0-32.0); CREATININE 0.4 mg/dL (0.6-1.0); EST CRCL DRUG DOSING (CG) 170.12 mL/min; POTASSIUM,K 3.9 mmol/L (3.5-5.1); PROTEIN TOTAL,TP 6.3 g/dL (6.4-8.2)
[2023-12-07] MEDS: Azithromycin 250 MG Tab PO SCH (12:43)
[2023-12-07 12:45] VITALS: BP 112/85; PULSE 86
== END 2023-12-07 14:30 | disposition home or self-care (01) | DRG 831 ==
LOC: MW.ED 09:24 → MW.MS 12:26
PROVIDERS: ADMIT Family Medicine; ATTEND Family Medicine
DX: O99.512 Diseases of the respiratory system complicating pregnancy, second trimester (principal); J18.9 Pneumonia, unspecified organism; J96.91 Respiratory failure, unspecified with hypoxia; J96.01 Acute respiratory failure with hypoxia; O99.282 Endocrine, nutritional and metabolic diseases complicating pregnancy, second trimester; E87.6 Hypokalemia; Z3A.22 22 weeks gestation of pregnancy; Z86.16 Personal history of COVID-19; Z98.890 Other specified postprocedural states; Z79.899 Other long term (current) drug therapy
CPT/HCPCS: 0241U; 36415; 71045; 71045-26; 80053; 83605; 83880; 84484; 85025; 85379; 87040; 87899; 94640; 99222; 99232; 99239; 99285; A9270-GY; J0456; J0696; J2765; J3490; J7030; J7050; J7620-GY

== ENCOUNTER 2024-02-29 14:34 | Emergency (ER) | payer MEDICAID ==
[2024-02-29 15:39] VITALS: BP 114/65; PULSE 103
== END 2024-02-29 15:40 | disposition home or self-care (01) ==
LOC: MW.ED 14:34
DX: O22.43 Hemorrhoids in pregnancy, third trimester (principal); Z75.8 Other problems related to medical facilities and other health care; Z3A.35 35 weeks gestation of pregnancy
CPT/HCPCS: 99282

== ENCOUNTER 2024-03-31 02:12 | Inpatient (IN) | payer MEDICAID ==
[2024-03-31 02:54] LABS: APPEARANCE,URINE CLEAR; BILIRUBIN,URINE NEGATIVE (NEGATIVE); COLOR,URINE YELLOW; GLUCOSE,URINE NEGATIVE (NEGATIVE); KETONES,URINE NEGATIVE (NEGATIVE); LEUKOCYTE ESTERASE,URINE NEGATIVE (NEGATIVE); NITRITE,URINE NEGATIVE (NEGATIVE); OCCULT BLOOD,URINE NEGATIVE (NEGATIVE); PROTEIN,URINE NEGATIVE (NEGATIVE); UROBILINOGEN,URINE 0.2 EU/dL (<2.0)
[2024-03-31 03:35] LABS: BACTERIA,URINE RARE (NEGATIVE); EPITHELIAL CELLS,URINE FEW (NONE-FEW); RBC,URINE 0-1 (0-2/HPF); WBC,URINE 0-2 (0-5/HPF)
[2024-03-31] MEDS ORDERED: ceFAZolin 2 GM in Sodium Chloride 0.9% 50 ML IV ONE (04:45)
[2024-03-31] MEDS ORDERED: Sodium Chloride 0.9% 20 ML SDV IV PRN (04:45)
[2024-03-31] MEDS ORDERED: Misoprostol 200 MCG Tab RECTAL PRN (04:45)
[2024-03-31] MEDS ORDERED: Sodium Chloride 0.9% 2.5 ML Syringe FLUSH PRN (04:45)
[2024-03-31] MEDS ORDERED: Oxytocin/0.9 % Sodium Chloride 30 UNIT/500 ML BAG IV SCH (04:45)
[2024-03-31] MEDS ORDERED: Methylergonovine 0.2 MG/1 ML Amp IM PRN (04:45)
[2024-03-31] MEDS ORDERED: Sodium Chloride 0.9% 10 ML Syringe FLUSH PRN (04:45)
[2024-03-31] MEDS ORDERED: Lactated Ringers 1,000 ML IV SCH ×2 (04:45→05:30)
[2024-03-31] MEDS ORDERED: Citric Acid/Sodium Citrate Solution 30 ML Cup PO ONE (04:45)
[2024-03-31 04:47] LABS: BASOPHILS ABSOLUTE AUTO 0.04 K/uL (0.00-0.20); BASOPHILS PERCENT AUTO 0.4 % (0.0-1.0); EOSINOPHILS ABSOLUTE AUTO 0.32 K/uL (0.00-0.45); EOSINOPHILS PERCENT AUTO 3.1 % (0.0-6.0); HEMATOCRIT 29.9 % (37.0-47.0); IMMATURE GRAN ABSOLUTE AUTO 0.11 K/uL (0.00-0.05); IMMATURE GRAN PERCENT AUTO 1.1 % (0.0-0.4); LYMPHOCYTES ABSOLUTE AUTO 2.17 K/uL (1.00-4.80); LYMPHOCYTES PERCENT AUTO 20.7 % (24.0-44.0); MEAN CORPUSCULAR HEMOGLOBIN 21.7 pg (28.0-32.0); MEAN CORPUSCULAR HGB CONC 30.1 g/dL (32.0-36.0); MEAN CORPUSCULAR VOLUME 72.2 fL (83.0-99.0); MONOCYTES ABSOLUTE AUTO 0.79 K/uL (0.00-0.80); MONOCYTES PERCENT AUTO 7.5 % (0.0-8.0); NEUTROPHILS ABSOLUTE AUTO 7.04 K/uL (1.80-7.70); NEUTROPHILS PERCENT AUTO 67.2 % (41.0-71.0); PLATELET COUNT,PLT 310 K/uL (150-400); RED BLOOD CELL COUNT 4.14 M/uL (4.10-5.30); WHITE BLOOD CELL COUNT,WBC 10.47 K/uL (3.9-11.3)
[2024-03-31] MEDS ORDERED: fentaNYL 100 MCG/2 ML SDV ONE (05:09)
[2024-03-31] MEDS ORDERED: ceFAZolin 1 GM Vial ONE (05:09)
[2024-03-31] MEDS ORDERED: Ondansetron 4 MG/2 ML SDV ONE (05:09)
[2024-03-31] MEDS ORDERED: EPINEPHrine 1 MG/1 ML Amp ONE (05:09)
[2024-03-31] MEDS ORDERED: Bupivacaine 0.25% 30 ML SDV ONE (05:09)
[2024-03-31] MEDS ORDERED: Oxytocin 10 Units/1 ML SDV ONE (05:09)
[2024-03-31] MEDS ORDERED: Ketorolac 30 MG/ML SDV ONE (05:09)
[2024-03-31] MEDS ORDERED: Ropivacaine 0.5% 5 MG/ML 30 ML SDV ONE (05:09)
[2024-03-31] MEDS ORDERED: Phenylephrine HCl In 0.9% NaCl 1 MG/10 ML Syringe ONE ×3 (05:10→06:29)
[2024-03-31] MEDS ORDERED: Tranexamic Acid 1,000 MG/10 ML Vial ONE (05:10)
[2024-03-31] MEDS ORDERED: Morphine PF 10 MG/10 ML SDV ONE (05:10)
[2024-03-31] MEDS ORDERED: Acetaminophen/oxyCODONE 325-5 MG Tab PO PRN (05:23)
[2024-03-31] MEDS ORDERED: Tranexamic Acid IN NACL,ISO-OS 1,000 MG in Premix Bag 1 BAG IV PRN (05:23)
[2024-03-31] MEDS ORDERED: Temazepam 15 MG Cap PO PRN (05:23)
[2024-03-31] MEDS ORDERED: Lanolin 100% Cream 7 GM Tube TOP PRN (05:23)
[2024-03-31] MEDS ORDERED: Bisacodyl 10 MG Supp RECTAL PRN (05:23)
[2024-03-31 07:09] LABS: PH,UMBILICAL ARTERIAL 7.143 (7.18-7.38)
[2024-03-31 07:10] LABS: PH,UMBILICAL VENOUS 7.23 (7.25-7.45)
[2024-03-31 07:19] LABS: HEPATITIS C AB# 0.19 INDEX (<0.8)
[2024-03-31] MEDS ORDERED: fentaNYL 100 MCG/2 ML SDV IVPUSH PRN (07:40)
[2024-03-31] MEDS ORDERED: Naloxone 0.4 MG/ML SDV IVPUSH PRN (07:40)
[2024-03-31] MEDS ORDERED: Metoclopramide 10 MG/2 ML SDV IVPUSH PRN (07:40)
[2024-03-31] MEDS ORDERED: ePHEDrine 50 MG/ML SDV IVPUSH PRN (07:40)
[2024-03-31] MEDS ORDERED: HYDROmorphone 2 MG/ML Syringe IVPUSH PRN (07:40)
[2024-03-31] MEDS ORDERED: Ondansetron 4 MG/2 ML SDV IVPUSH PRN ×2 (07:40)
[2024-03-31] MEDS ORDERED: Phenylephrine HCl In 0.9% NaCl 1 MG/10 ML Syringe IVPUSH PRN (07:40)
[2024-03-31] MEDS ORDERED: diphenhydrAMINE 50 MG/ML SDV IVPUSH PRN (07:40)
[2024-03-31] MEDS ORDERED: fentaNYL 50 MCG/ML SDV IVPUSH PRN (07:40)
[2024-03-31] MEDS ORDERED: Morphine 2 MG/ML SYRINGE IVPUSH PRN (07:40)
[2024-03-31] MEDS ORDERED: Albuterol 0.083% 2.5 MG/3 ML Neb Soln NEB PRN (07:40)
[2024-03-31] MEDS ORDERED: droPERidol 5 MG/2 ML SDV IVPUSH PRN (07:40)
[2024-03-31] MEDS ORDERED: ePHEDrine 50 MG/ML SDV IM PRN (07:43)
[2024-03-31] MEDS: Acetaminophen 1,000 MG in Premix Bag 1 BAG IV SCH (08:44)
[2024-03-31] MEDS: Nalbuphine 10 MG/1 ML Vial IVPUSH PRN (09:01)
[2024-03-31] MEDS ORDERED: Ibuprofen 800 MG Tab PO PRN (11:00)
[2024-03-31] MEDS: Ferrous Sulfate 325 MG Tab PO SCH (11:26)
[2024-03-31] MEDS: Simethicone 80 MG Tab.Chew PO SCH (11:26)
[2024-03-31] MEDS: Docusate Sodium 100 MG Cap PO SCH (11:27)
[2024-03-31] MEDS: Ketorolac 30 MG/ML SDV IVPUSH SCH (12:36)
[2024-03-31] MEDS: Ondansetron 4 MG/2 ML SDV IVPUSH PRN (12:53)
[2024-03-31] MEDS: diphenhydrAMINE 50 MG/ML SDV IVPUSH PRN (12:57)
[2024-04-01] MEDS: Acetaminophen/oxyCODONE 325-5 MG Tab PO PRN ×2 (04:54→09:26)
[2024-04-01 05:59] LABS: HEMATOCRIT 25.3 % (37.0-47.0); HEMOGLOBIN 7.6 g/dL (12.0-16.0); MEAN CORPUSCULAR HEMOGLOBIN 21.9 pg (28.0-32.0); MEAN CORPUSCULAR VOLUME 72.9 fL (83.0-99.0); MEAN PLATELET VOLUME 10.2 fL (9.4-12.3); NRBC ABSOLUTE 0.03 K/uL (0.00-0.02); NRBC PERCENT 0.2 /100WBC (0.0-0.2); PLATELET COUNT,PLT 319 K/uL (150-400); RED BLOOD CELL COUNT 3.47 M/uL (4.10-5.30); WHITE BLOOD CELL COUNT,WBC 18.08 K/uL (3.9-11.3)
[2024-04-01 06:25] LABS: BAND ABSOLUTE MAN 0.72; BAND PERCENT MAN 4 %; LYMPHOCYTES ABSOLUTE MAN 1.99 K/uL (1.00-4.80); LYMPHOCYTES PERCENT MAN 11 % (24-44); MONOCYTES ABSOLUTE MAN 0.36 K/uL (0.00-0.80); MONOCYTES PERCENT MAN 2 % (0-8); SEG NEUTROPHILS ABSOLUTE MAN 15.01 K/uL (1.80-7.70); SEG NEUTROPHILS PERCENT MAN 83 % (41-71)
[2024-04-01] MEDS: Sodium Ferric Gluconate Cmplex 125 MG in Sodium Chloride 0.9% 100 ML IV ONE (12:19)
[2024-04-01 19:43] VITALS: BP 113/72; PULSE 84
== END 2024-04-01 18:39 | disposition home or self-care (01) | DRG 788 ==
LOC: MW.OBCHECK 02:12 → MW.OB 02:14 → MW.OBCHECK 06:17 → MW.OB 06:18 → OBSVTOIN 07:00 → MW.OB 12:29
PROVIDERS: ADMIT Obstetrics & Gynecology; ATTEND Obstetrics & Gynecology
PROC: 10D00Z1 Extraction of Products of Conception, Low, Open Approach (ICD-10-PCS; principal; 2024-03-31 06:00)
DX: O34.211 Maternal care for low transverse scar from previous cesarean delivery (principal); O99.02 Anemia complicating childbirth; O99.334 Smoking (tobacco) complicating childbirth; U07.0 Vaping-related disorder; Z37.0 Single live birth; Z3A.39 39 weeks gestation of pregnancy; D50.9 Iron deficiency anemia, unspecified
CPT/HCPCS: 01961; 36415; 59514; 64488; 81001; 82803; 85025; 86592; 86803; 86850; 86900; 86901; A9270-GY; J0131; J0171; J0665; J0690; J1100; J1200; J1885; J2274; J2300; J2371; J2405; J2590; J2795; J2916; J3010; J3490

== ENCOUNTER 2024-04-05 12:15 | Emergency (ER) | payer MEDICAID ==
[2024-04-05 13:06] LABS: BASOPHILS ABSOLUTE AUTO 0.07 K/uL (0.00-0.20); BASOPHILS PERCENT AUTO 0.8 % (0.0-1.0); EOSINOPHILS ABSOLUTE AUTO 0.86 K/uL (0.00-0.45); EOSINOPHILS PERCENT AUTO 9.6 % (0.0-6.0); HEMATOCRIT 29.1 % (37.0-47.0); HEMOGLOBIN 8.5 g/dL (12.0-16.0); IMMATURE GRAN ABSOLUTE AUTO 0.21 K/uL (0.00-0.05); IMMATURE GRAN PERCENT AUTO 2.3 % (0.0-0.4); LYMPHOCYTES ABSOLUTE AUTO 2.04 K/uL (1.00-4.80); LYMPHOCYTES PERCENT AUTO 22.7 % (24.0-44.0); MEAN CORPUSCULAR HEMOGLOBIN 22.5 pg (28.0-32.0); MEAN CORPUSCULAR HGB CONC 29.2 g/dL (32.0-36.0); MEAN CORPUSCULAR VOLUME 77.2 fL (83.0-99.0); MEAN PLATELET VOLUME 9.2 fL (9.4-12.3); MONOCYTES ABSOLUTE AUTO 0.68 K/uL (0.00-0.80); MONOCYTES PERCENT AUTO 7.6 % (0.0-8.0); NEUTROPHILS ABSOLUTE AUTO 5.14 K/uL (1.80-7.70); NRBC ABSOLUTE 0.02 K/uL (0.00-0.02); NRBC PERCENT 0.2 /100WBC (0.0-0.2); PLATELET COUNT,PLT 350 K/uL (150-400); RED BLOOD CELL COUNT 3.77 M/uL (4.10-5.30)
[2024-04-05 13:29] LABS: A/G RATIO 0.8 (0.9-1.6); ALANINE AMINOTRANSFERASE,ALT 22 IU/L (14-63); ALBUMIN 2.7 g/dL (3.4-5.0); ALKALINE PHOSPHATASE 123 U/L (46-116); ASPARTATE AMNIOTRANSFERASE,AST 18 IU/L (15-37); BILIRUBIN TOTAL 0.3 mg/dL (0.2-1.0); BLOOD UREA NITROGEN,BUN 5 mg/dL (7.0-18.0); CALCIUM 8.8 mg/dL (8.5-10.1); CARBON DIOXIDE,CO2 22.1 mmol/L (21.0-32.0); CHLORIDE,CL 107 mmol/L (98-107); CREATININE 0.5 mg/dL (0.6-1.0); GLUCOSE RANDOM 102 mg/dL (74-106); LIPASE 26 U/L (16-77); POTASSIUM,K 3.7 mmol/L (3.5-5.1); PROTEIN TOTAL,TP 6.3 g/dL (6.4-8.2); SODIUM,NA 139 mmol/L (136-145)
[2024-04-05 13:30] LABS: ESTIMATED GFR 129 mL/min (>60)
== END 2024-04-05 14:03 | disposition left against medical advice (07) ==
LOC: MW.ED 12:15
DX: Z53.21 Procedure and treatment not carried out due to patient leaving prior to being seen by health care provider (principal)
CPT/HCPCS: 36415; 80053; 83605; 83690; 84703; 85025; 85652; 86140